=== PATIENT | male | born 1985 | race Caucasian/White ===

== ENCOUNTER 2023-08-09 07:25 | Outpatient (OUT) | payer OTHER, SELFPAY ==
[2023-08-09 08:12] LABS: Basophils Percent Auto 0.5 % (0.2-2.0); Eosinophils Absolute Auto 0.1 10^3/uL (0.0-0.7); Eosinophils Percent Auto 1.5 % (0.9-7.0); Hematocrit 43.1 % (42.0-54.0); Hemoglobin 14.5 g/dL (14.0-18.0); Immature Granulocytes Abs Auto 0.02 10^3/uL (0.00-0.03); Immature Granulocytes Pct Auto 0.3 % (0.0-0.5); Lymphocytes Absolute Auto 1.8 10^3/uL (1.2-3.8); Lymphocytes Percent Auto 27.9 % (20.5-60.0); Mean Corpuscular HGB Conc 33.6 g/dL (29.9-35.2); Mean Platelet Volume 9.9 fL (9.5-13.5); Monocytes Absolute Auto 0.4 10^3/uL (0.3-0.8); Monocytes Percent Auto 6.8 % (1.7-12.0); Neutrophils Absolute Auto 4.1 10^3/uL (1.4-6.5); Platelet Count 294 10^3/uL (150-450); Red Blood Count 4.84 10^6/uL (4.70-6.10); White Blood Count 6.5 10^3/uL (4.0-11.0)
[2023-08-09 09:25] LABS: Estimated Average Glucose 111 mg/dL; Glycohemoglobin A1C 5.5 % (4.5-6.2)
[2023-08-09 10:35] LABS: Alanine Aminotransferase 37 U/L (16-63); Albumin Level 3.7 g/dL (3.4-5.0); Alkaline Phosphatase 93 U/L (46-116); Anion Gap 11.3; Aspartate Amino Transferase 15 U/L (15-37); BUN Creatinine Ratio 13.6; Bilirubin Total 0.4 mg/dL (0.2-1.0); Calcium 9.2 mg/dL (8.5-10.1); Carbon Dioxide 24.6 mmol/L (21.0-32.0); Chloride 105 mmol/L (98-107); Chol HDL Ratio 4.9; Cholesterol 178 mg/dL (<=200); Estimated GFR (African America >60 (>=60); Estimated GFR (Non-African Ame >60 (>=60); Globulin 3.8 g/dL; Glucose 107 mg/dL (74-106); HDL Cholesterol 36 mg/dL (40-60); Potassium 3.9 mmol/L (3.5-5.1); Sodium 137 mmol/L (136-145); Thyroid Stimulating Hormone 2.046 uIU/mL (0.358-3.740); Total Protein 7.5 g/dL (6.4-8.2); Triglycerides 137 mg/dL (<=150); Uric Acid 6.7 mg/dL (3.5-7.2); VLDL CHOLESTEROL 27.4 mg/dL
[2023-08-09 10:42] LABS: Prostate Specific Antigen Scrn 0.59 ng/mL (<=4.00)
[2023-08-09 16:03] LABS: Occult Blood Negative
[2023-08-10 12:08] LABS: Insulin 26.4 uIU/mL (2.6-24.9)
== END 2023-08-09 07:26 | disposition home or self-care (01) ==
LOC: LAB 07:28
PROVIDERS: PCP Family Medicine; Visit Provider Family Medicine
DX: Z00.00 Encounter for general adult medical examination without abnormal findings (principal); R73.09 Other abnormal glucose; Z12.12 Encounter for screening for malignant neoplasm of rectum
CPT/HCPCS: 36415; 80053; 80061; 83036; 83525; 84436; 84443; 84481; 84550; 85025; G0103; G0328

== ENCOUNTER 2023-08-26 12:33 | Outpatient (OUT) | payer OTHER, SELFPAY ==
--- OUTSIDE RECORDS SUMMARY | 2023-08-26 12:40 | XMS_ITS | CCD ---
Author Name Unknown Address [address] [place] [address] Organization [facility] Care Team Providers Care Chart Computer Name Role Phone DR REKHA BARTH Admitting Unavailable DR REKHA BARTH Attending Unavailable DR REKHA ABRTH Primary Care Unavailable DR REKHA BARTH Consulting Unavailable Results Test Name Value Interpretation Reference Range Facil ity CBC AUTO DIFFon 04-24-2022 BASO # 0.0 103/ul Normal 0.0-0.1 [facility] Comment on above: Performed By: #### C BC #### [facility] [address] [place] [address] Dr. Emelyn Tilley Basophils/100 WBC (Bld) 0.4 % Normal 0.2-2.0 [facility] Comment on above: Performed By: #### C BC #### [facility] [address] [address] [address] Emelyn Tilley EO # 0.1 103/ul Normal 0.0-0.7 [facility] Comment on above: Performed By: #### C BC #### [facility] [address] [address] [address] Emelyn Tilley Eosinophils/100 WBC (Bld) 1.0 % Normal 0.9-7.0 [facility] Comment on above: Performed By: #### C BC #### [facility] [address] [address] [address] Emelyn Tilley Erythrocyte distribution width (RBC) [Ratio] 13.0 % Normal 11.0-15.0 [facility] Comment on above: Performed By: #### C BC #### [facility] [address] [place] [address] Dr. Emelyn Tilley Hematocrit (Bld) [Volume fraction] 42.7 % Normal 42.0-54.0 [facility] Comment on above: Performed By: #### C BC #### [facility] [address] [address] [address] Eemlyn Tilley Hemoglobin (Bld) [Mass/Vol] 14.4 g/dL Normal 14.0-18.0 [facility] Comment on above: Performed By: #### C BC #### [facility] [address] [place] [address] Dr. Emelyn Tilley IG # 0.03 10e3/ul Normal 0.00-0.03 [facility] Comment on above: Performed By: #### C BC #### [facility] [address] [place] [address] Dr. Emelyn Tilley IG % 0.4 % Normal 0.0-0.5 [facility] Comment on above: Performed By: #### C BC #### [facility] [address] [place] [address] Dr. Emelyn Tilley LYMPH # 1.6 103/ul Normal 1.2-3.8 [facility] Comment on above: Performed By: #### C BC #### [facility] [address] [place] [address] Dr. Emelyn Tilley Lymphocytes/100 WBC (Bld) 23.5 % Normal 20.5-60.0 [facility] Comment on above: Performed By: #### C BC #### [facility] [address] [place] [address] Dr. Emelyn Tilley MANUAL DIFF REQ NO Normal [facility] Comment on above: Performed By: #### C BC #### [facility] [address] [place] [address] Dr. Emelyn Tilley MCH (RBC) [Entitic mass] 29.9 pg Normal 25.9-34.0 [facility] Comment on above: Performed By: #### C BC #### [facility] [address] [place] [address] Dr. Emelyn Tilley MCHC (RBC) [Mass/Vol] 33.7 g/dL Normal 29.9-35.2 [facility] Comment on above: Performed By: #### C BC #### [facility] [address] [address] [address] Emelyn Tilley MCV (RBC) [Entitic vol] 88.8 fL Normal 80.0-94.0 [facility] Comment on above: Performed By: #### C BC #### [facility] [address] [address] [address] Emelyn Tilley MONO # 0.5 103/ul Normal 0.3-0.8 [facility] Comment on above: Performed By: #### C BC #### [facility] [address] [address] [address] Emelyn Tilley Monocytes/100 WBC (Bld) 7.4 % Normal 1.7-12.0 [facility] Comment on above: Performed By: #### C BC #### [facility] [address] [place] [address] Dr. Emelyn Tilley NEUT # 4.7 103/ul Normal 1.4-6.5 [facility] Comment on above: Performed By: #### C BC #### [facility] [address] [place] [address] Dr. Emelyn Tilley Neutrophils/100 WBC (Bld) 67.3 % Normal 43.0-75.0 [facility] Comment on above: Performed By: #### C BC #### [facility] [address] [place] [address] Dr. Emelyn Tilley Platelet mean volume (Bld) [Entitic vol] 9.8 fL Normal 9.5-13.5 [facility] Comment on above: Performed By: #### C BC #### [facility] [address] [place] [address] Dr. Emelyn Tilley PLT 275 103/ul Normal 150-450 [facility] Comment on above: Performed By: #### C BC #### [facility] [address] [address] [address] Emelyn Tilley RBC 4.81 106/ul Normal 4.70-6.10 [facility] Comment on above: Performed By: #### C BC #### [facility] [address] [address] [address] Emelyn Tilley WBC 7.0 103/ul Normal 4.0-11.0 [facility] Comment on above: Performed By: #### C BC #### [facility] [address] [place] [address] Dr. Emelyn Tilley GLYCOHEMOGLOBIN A1Con 2021 ADA RECOMMENDATION SEE BELOW Normal [facility] Comment on above: Result Comment: ADA RECOMMENDED LIMIT 4.0 - 6.0 ADA THERAPEUTIC TARGET < 7.0 ACTION SUGGESTED > 7.0 Performed By: #### A 1C #### [facility] [address] [place] [address] Dr. Emelyn Tilley Glucose [Mass/Vol] 103 mg/dL Normal [facility] Comment on above: Performed By: #### A 1C #### [facility] [address] [place] [address] Dr. Emelyn Tilley HbA1c (Bld) [Mass fraction] 5.2 % Normal 4.5-6.2 [facility] Comment on above: Performed By: #### A 1C #### [facility] [address] [place] [address] Dr. Emelyn Tilley LIPID PROFILEon 04-24-2022 CHOL-HDL RATIO NORM SEE BELOW Normal [facility] Comment on above: Result Comment: 3.3 - 4.4 LOW RISK 4.4 - 7.1 AVERAGE RISK 7.1 - 11.0 MODERATE RISK >11.0 HIGH RISK Performed By: #### L IPID, CMP #### [facility] [address] [place] [address] Dr. Emelyn Tilley Cholesterol [Mass/Vol] 173 mg/dL Normal <=200 [facility] Comment on above: Performed By: #### L IPID, CMP #### [facility] [address] [place] [address] Dr. Emelyn Tilley Cholesterol in HDL [Mass/Vol] 33 mg/dL Critically low 40-60 [facility] Comment on above: Performed By: #### L IPID, CMP #### [facility] [address] [place] [address] Dr. Emelyn Tilley Cholesterol in LDL [Mass/Vol] 104.4 mg/dL Normal [facility] Comment on above: Performed By: #### L IPID, CMP #### [facility] [address] [address] [address] Emelyn Tilley Cholesterol.total/Cho lesterol in HDL [Mass ratio] 5.2 {ratio} Normal [facility] Comment on above: Performed By: #### L IPID, CMP #### [facility] [address] [address] [address] Emelyn Tilley HDL NORMAL > or = 60 mg/dl - LOW CARDIOVASCULAR RISK <40 mg/dl - HIGH CARDIOVASCULAR RISK Normal [facility] Comment on above: Performed By: #### L IPID, CMP #### [facility] [address] [address] [address] Emelyn Tilley LDL CALC NORMAL SEE BELOW Normal [facility] Comment on above: Result Comment: <100 mg/dl OPTIMAL 100 - 129 mg/dl NEAR OR ABOVE OPTIMAL 130 - 159 mg/dl BORDERLINE HIGH 160 - 189 mg/dl HIGH >190 mg/dl VERY HIGH Performed By: #### L IPID, CMP #### [facility] [address] [address] [address] Emelyn Tilley Triglyceride [Mass/Vol] 178 mg/dL Critically high <=150 [facility] Comment on above: Performed By: #### L IPID, CMP #### [facility] [address] [address] [address] Emelyn Tilley VLDL CALC 35.6 mg/dL Normal [facility] Comment on above: Performed By: #### L IPID, CMP #### [facility] [address] [address] [address] Emelyn Tilley PROF 14(COMP METB)on 022 Albumin [Mass/Vol] 4.0 g/dL Normal 3.4-5.0 [facility] Comment on above: Performed By: #### L IPID, CMP #### [facility] [address] [address] [address] Emelyn Tilley Albumin/Globulin [Mass ratio] 1.2 {ratio} Normal [facility] Comment on above: Performed By: #### L IPID, CMP #### [facility] [address] [place] [address] Dr. Emelyn Tilley ALP [Catalytic activity/Vol] 91 U/L Normal 46-116 [facility] Comment on above: Performed By: #### L IPID, CMP #### [facility] [address] [place] [address] Dr. Emelyn Tilley ALT [Catalytic activity/Vol] 34 U/L Normal 16-63 [facility] Comment on above: Performed By: #### L IPID, CMP #### [facility] [address] [place] [address] Dr. Emelyn Tilley Anion gap [Moles/Vol] 8.8 mmol/L Normal [facility] Comment on above: Performed By: #### L IPID, CMP #### [facility] [address] [place] [address] Dr. Emelyn Tilley AST [Catalytic activity/Vol] 13 U/L Critically low 15-37 [facility] Comment on above: Performed By: #### L IPID, CMP #### [facility] [address] [place] [address] Dr. Emelyn Tilley Bilirubin [Mass/Vol] 0.5 mg/dL Normal 0.2-1.0 [facility] Comment on above: Performed By: #### L IPID, CMP #### [facility] [address] [place] [address] Dr. Emelyn Tilley Calcium [Mass/Vol] 9.1 mg/dL Normal 8.5-10.1 [facility] Comment on above: Performed By: #### L IPID, CMP #### [facility] [address] [place] [address] Dr. Emelyn Tilley Chloride [Moles/Vol] 106 mmol/L Normal 98-107 [facility] Comment on above: Performed By: #### L IPID, CMP #### [facility] [address] [place] [address] Dr. Emelyn Tilley CO2 [Moles/Vol] 28.2 mmol/L Normal 21.0-32.0 [facility] Comment on above: Performed By: #### L IPID, CMP #### [facility] [address] [place] [address] Dr. Emelyn Tilley Creatinine [Mass/Vol] 0.92 mg/dL Normal 0.70-1.30 [facility] Comment on above: Performed By: #### L IPID, CMP #### [facility] [address] [place] [address] Dr. Emelyn Tilley EGFR-AF IRAQI >60 Normal >=60 [facility] Comment on above: Performed By: #### L IPID, CMP #### [facility] [address] [place] [address] Dr. Emelyn Tilley EGFR-NON AF IRAQI >60 Normal >=60 [facility] Comment on above: Performed By: #### L IPID, CMP #### [facility] [address] [place] [address] Dr. Emelyn Tilley Globulin (S) [Mass/Vol] 3.3 g/dL Normal [facility] Comment on above: Performed By: #### L IPID, CMP #### [facility] [address] [place] [address] Dr. Emelyn Tilley Glucose [Mass/Vol] 110 mg/dL Critically high 74-106 T [facility] Comment on above: Performed By: #### L IPID, CMP #### [facility] [address] [place] [address] Dr. Emelyn Tilley Potassium [Moles/Vol] 4.0 mmol/L Normal 3.5-5.1 [facility] Comment on above: Performed By: #### L IPID, CMP #### [facility] [address] [place] [address] Dr. Emelyn Tilley Protein [Mass/Vol] 7.3 g/dL Normal 6.4-8.2 [facility] Comment on above: Performed By: #### L IPID, CMP #### [facility] [address] [place] [address] Dr. Emelyn Tilley Sodium [Moles/Vol] 139 mmol/L Normal 136-145 [facility] Comment on above: Performed By: #### L IPID, CMP #### [facility] [address] [address] [address] Emelyn Tilley Urea nitrogen [Mass/Vol] 17.0 mg/dL Normal 7.0-18.0 [facility] Comment on above: Performed By: #### L IPID, CMP #### [facility] [id number] Emelyn Tilley Urea nitrogen/Creatinine [Mass ratio] 18.5 mg/mg Normal [facility] Comment on above: Performed By: #### L IPID, CMP #### [facility] [address] [address] [address] Emelyn Tilley Encounters Encounter Date Encounter Type Care Provider Facility Start: 04-27-2022 Encounter for genera l adult medical examination without abnormal findings DR REKHA BARTH [facility] Start: 04-24-2022 End: 04-25-[address] REKHA BARTH Facility:[facility] Start: 04-24-2022 End: 04-25-2022 Encounter for general adult medical examination without abnormal findings DR REKHA BARTH Facility:[facility] Payers Date Payer Category Payer Unknown [id number] Unknown [id number] Summary Purpose Family History No Family History Records Found Advance Directives No Advanced Directives Records Found Additional Source Comments (unrecognized sect ion and content) No Status Records Found INFORMATION SOURCE (unrecogn ized section and content) DATE CREATED AUTHOR 04/27/2022 [facility] FOR RECORDS PERTAINING TO PATIENTS WHO ARE OR HAVE BEEN ENROLLED IN A CHEMICAL DEPENDENCY/SUBSTANCEABUSE PROGRAM, SOME INFORMATION MAY BE OMITTED. This clinical summary was aggregated from multiple sources. Caution should be exercised in using it in the provision of clinical care. This summary normalizes information from multiple sources, and as a consequence, information in this document may materially change the coding, format and clinical context of patient data. In addition, data may be omitted in some cases. CLINICAL DECISIONS SHOULD BE BASED ON THE PRIMARY CLINICAL RECORDS. [facility] provides no warranty or guarantee of the accuracy or completeness of information in this document.
[2023-08-26 13:01] LABS: Basophils Percent Auto 0.5 % (0.2-2.0); Eosinophils Absolute Auto 0.1 10^3/uL (0.0-0.7); Hemoglobin 14.1 g/dL (14.0-18.0); Immature Granulocytes Abs Auto 0.03 10^3/uL (0.00-0.03); Immature Granulocytes Pct Auto 0.4 % (0.0-0.5); Lymphocytes Absolute Auto 1.9 10^3/uL (1.2-3.8); Lymphocytes Percent Auto 24.8 % (20.5-60.0); Mean Corpuscular HGB Conc 33.6 g/dL (29.9-35.2); Mean Corpuscular Hemoglobin 29.9 pg (25.9-34.0); Mean Corpuscular Volume 89.2 fL (80.0-94.0); Mean Platelet Volume 9.8 fL (9.5-13.5); Monocytes Absolute Auto 0.5 10^3/uL (0.3-0.8); Monocytes Percent Auto 6.9 % (1.7-12.0); Neutrophils Absolute Auto 5.1 10^3/uL (1.4-6.5); Neutrophils Percent Auto 66.4 % (43.0-75.0); Platelet Count 281 10^3/uL (150-450); Red Blood Count 4.71 10^6/uL (4.70-6.10); Red Cell Distribution Width 12.7 % (11.0-15.0); White Blood Count 7.7 10^3/uL (4.0-11.0)
== END 2023-08-26 12:34 | disposition home or self-care (01) ==
LOC: LAB 12:34
PROVIDERS: PCP Family Medicine; Visit Provider Family Medicine
DX: R19.4 Change in bowel habit (principal)
CPT/HCPCS: 36415; 85025

== ENCOUNTER 2023-09-21 07:52 | Outpatient (OUT) | payer OTHER, SELFPAY ==
--- OUTSIDE RECORDS SUMMARY | 2023-09-21 07:55 | XMS_ITS | CCD ---
Author Name Unknown Address [address] [facility] [address] [place] [id number] Organization [facility] Care Team Providers Care Flexo Press Operator Name Role Phone DR REKHA BARTH Admitting Unavailable DR REKHA BARTH Attending Unavailable DR REKHA BARTH Primary Care Unavailable DR REKHA BARTH Consulting Unavailable Samuel DE SANTIAGO Attending Unavailable Rekha Barth Referring Unavailable Rekha Barth Primary Care Physician Medications Current Medications Medication Drug Class(es) Dates Sig (Normalized) Sig (Original) citalopram 20 mg oral tablet (1 source) Serotonin Reuptake Inhibitor Start: 08-31-2023 take 1 tablet by mouth once daily citalopram 20 mg Tab 20 mg = 1 tab(s), Oral, Daily, Refills(s) 0 Start Date: 08/31/23 Status: Ordered Completed/Discontinued Medications Medication Drug Class(es) Dates Sig (Normalized) Sig (Original) lansoprazole 30 mg delayed release oral capsule (1 source) Proton Pump Inhibitor Start: 08-31-2023 take 1 capsule by mouth once daily lisinopril 10 mg oral tablet (1 source) Angiotensin Converting Enzyme Inhibitor Start: 08-31-2023 take 1 tablet by mouth once daily Problems Problem Classification Problem Date Documented Da te Episodic/Chronic Esophageal disorders (2 sources) Gastroesophageal reflux disease without esophagitis; Translations: [Gastro-esophageal reflux disease without esophagitis] Onset: 4 Chronic Essential hypertension (1 source) Hypertensive disorder 08-31-2023 Chronic Gastrointestinal hemorrhage (2 sources) Hemorrhage of rectum and anus; Translations: [Hemorrhage of anus and rectum] Onset: 4 Episodic Mood disorders (1 source) Mood disorder 08-31-2023 Chronic Other gastrointestinal disorders (1 source) Swollen abdomen; Translations: [Abdominal distension (gaseous)] Onset: 4 Episodic Other gastrointestinal disorders (2 sources) Altered bowel function; Translations: [Change in bowel habit] Onset: 4 Episodic Other gastrointestinal disorders (1 source) Abdominal bloating 09-13-2023 Episodic Other gastrointestinal disorders (1 source) Heartburn 08-31-2023 Episodic Other nutritional; endocrine; and metabolic disorders (1 source) Obese class II; Translations: [Body mass index (BMI) 37.0-37.9, adult] Onset: 4 Chronic Other nutritional; endocrine; and metabolic disorders (1 source) Body mass index 30+ - obesity 09-13-2023 Chronic Other nutritional; endocrine; and metabolic disorders (1 source) Morbid obesity 08-31-2023 Chronic Residual codes; unclassified (1 source) Obstructive sleep apnea syndrome 08-31-2023 Chronic Results Test Name Value Interpretation Reference Range Facil ity Physician Referralon 024 Physician Referral [id number] #[id number] Normal [facility] CBC AUTO DIFFon 04-24-2022 BASO # 0.0 103/ul Normal 0.0-0.1 [facility] Comment on above: Performed By: #### C BC #### [facility] [address] [place] [address] Dr. Emelyn Tilley Basophils/100 WBC (Bld) 0.4 % Normal 0.2-2.0 [facility] Comment on above: Performed By: #### C BC #### [facility] [address] [place] [address] Dr. Emelyn Tilley EO # 0.1 103/ul Normal 0.0-0.7 [facility] Comment on above: Performed By: #### C BC #### [facility] [address] [place] [address] Dr. Emelyn Tilley Eosinophils/100 WBC (Bld) 1.0 % Normal 0.9-7.0 [facility] Comment on above: Performed By: #### C BC #### [facility] [address] [place] [address] Dr. Emelyn Tilley Erythrocyte distribution width (RBC) [Ratio] 13.0 % Normal 11.0-15.0 [facility] Comment on above: Performed By: #### C BC #### [facility] [address] [place] [address] Dr. Emelyn Tilley Hematocrit (Bld) [Volume fraction] 42.7 % Normal 42.0-54.0 [facility] Comment on above: Performed By: #### C BC #### [facility] [address] [place] [address] Dr. Emelyn Tilley Hemoglobin (Bld) [Mass/Vol] 14.4 g/dL Normal 14.0-18.0 [facility] Comment on above: Performed By: #### C BC #### [facility] [address] [place] [address] Dr. Emelyn Tilley IG # 0.03 10e3/ul Normal 0.00-0.03 [facility] Comment on above: Performed By: #### C BC #### [facility] [address] [place] [address] Dr. Emelyn Tilley IG % 0.4 % Normal 0.0-0.5 [facility] Comment on above: Performed By: #### C BC #### [facility] [address] [place] [address] Dr. Emelyn Tilley LYMPH # 1.6 103/ul Normal 1.2-3.8 [facility] Comment on above: Performed By: #### C BC #### [facility] [address] [place] [address] Dr. Emelyn Tilley Lymphocytes/100 WBC (Bld) 23.5 % Normal 20.5-60.0 [facility] Comment on above: Performed By: #### C BC #### [facility] [address] [place] [address] Dr. Emelyn Tilley MANUAL DIFF REQ NO Normal [facility] Comment on above: Performed By: #### C BC #### [facility] [address] [place] [address] Dr. Emelyn Tilley MCH (RBC) [Entitic mass] 29.9 pg Normal 25.9-34.0 [facility] Comment on above: Performed By: #### C BC #### [facility] [address] [address] [address] Emelyn Tilley MCHC (RBC) [Mass/Vol] 33.7 g/dL Normal 29.9-35.2 [facility] Comment on above: Performed By: #### C BC #### [facility] [address] [place] [address] Dr. Emelyn Tilley MCV (RBC) [Entitic vol] 88.8 fL Normal 80.0-94.0 [facility] Comment on above: Performed By: #### C BC #### [facility] [address] [place] [address] Dr. Emelyn Tilley MONO # 0.5 103/ul Normal 0.3-0.8 [facility] Comment on above: Performed By: #### C BC #### [facility] [address] [place] [address] Dr. Emelyn Tilley Monocytes/100 WBC (Bld) 7.4 % Normal 1.7-12.0 [facility] Comment on above: Performed By: #### C BC #### [facility] [address] [place] [address] Dr. Emelyn Tilley NEUT # 4.7 103/ul Normal 1.4-6.5 [facility] Comment on above: Performed By: #### C BC #### [facility] [address] [place] [address] Dr. Emelyn Tilley Neutrophils/100 WBC (Bld) 67.3 % Normal 43.0-75.[address] [facility] Comment on above: Performed By: #### C BC #### [facility] [address] [place] [address] Dr. Emelyn Tilley Platelet mean volume (Bld) [Entitic vol] 9.8 fL Normal 9.5-13.[address] [facility] Comment on above: Performed By: #### C BC #### [facility] [address] [place] [address] Dr. Emelyn Tilley PLT 275 103/ul Normal 150-[address] [facility] Comment on above: Performed By: #### C BC #### [facility] [address] [address] [address] Emelyn Tilley RBC 4.81 106/ul Normal 4.70-6.10 [facility] Comment on above: Performed By: #### C BC #### [facility] [address] [address] [address] Emelyn Tilley WBC 7.0 103/ul Normal 4.0-11.0 [facility] Comment on above: Performed By: #### C BC #### [facility] [address] [place] [address] Dr. Emelyn Tilley GLYCOHEMOGLOBIN A1Con 2021 ADA RECOMMENDATION SEE BELOW Normal [facility] Comment on above: Result Comment: ADA RECOMMENDED LIMIT 4.0 - 6.0 ADA THERAPEUTIC TARGET < 7.0 ACTION SUGGESTED > 7.0 Performed By: #### A 1C #### [facility] [address] [place] [address] Dr. Emelyn Tilley Glucose [Mass/Vol] 103 mg/dL Normal [facility] Comment on above: Performed By: #### A 1C #### [facility] [address] [place] [address] Dr. Emelyn Tilley HbA1c (Bld) [Mass fraction] 5.2 % Normal 4.5-6.2 [facility] Comment on above: Performed By: #### A 1C #### [facility] [address] [place] [address] Dr. Emelyn Tilley LIPID PROFILEon 04-24-2022 CHOL-HDL RATIO NORM SEE BELOW Normal [facility] Comment on above: Result Comment: 3.3 - 4.4 LOW RISK 4.4 - 7.1 AVERAGE RISK 7.1 - 11.0 MODERATE RISK >11.0 HIGH RISK Performed By: #### L ANDREW, CMP #### [facility] [address] [place] [address] Dr. Emelyn Tilley Cholesterol [Mass/Vol] 173 mg/dL Normal <=200 [facility] Comment on above: Performed By: #### L IPKENDAL, CMP #### [facility] [address] [place] [address] Dr. Emelyn Tilley Cholesterol in HDL [Mass/Vol] 33 mg/dL Critically low 40-60 [facility] Comment on above: Performed By: #### L IPID, CMP #### [facility] [address] [address] [address] Emelyn Tilley Cholesterol in LDL [Mass/Vol] 104.4 mg/dL Normal [facility] Comment on above: Performed By: #### L IPID, CMP #### [facility] [address] [address] [address] Emelyn Tilley Cholesterol.total/Cho lesterol in HDL [Mass ratio] 5.2 {ratio} Normal [facility] Comment on above: Performed By: #### L IPID, CMP #### [facility] [address] [address] [address] Emelyn Tilley HDL NORMAL > or = 60 mg/dl - LOW CARDIOVASCULAR RISK <40 mg/dl - HIGH CARDIOVASCULAR RISK Normal [facility] Comment on above: Performed By: #### L IPID, CMP #### [facility] [address] [address] [address] Emelyn Tilley LDL CALC NORMAL SEE BELOW Normal [facility] Comment on above: Result Comment: <100 mg/dl OPTIMAL 100 - 129 mg/dl NEAR OR ABOVE OPTIMAL 130 - 159 mg/dl BORDERLINE HIGH 160 - 189 mg/dl HIGH >190 mg/dl VERY HIGH Performed By: #### L IPID, CMP #### [facility] [address] [address] [address] Emelyn Tilley Triglyceride [Mass/Vol] 178 mg/dL Critically high <=150 [facility] Comment on above: Performed By: #### L IPID, CMP #### [facility] [address] [address] [address] Emelyn Tilley VLDL CALC 35.6 mg/dL Normal [facility] Comment on above: Performed By: #### L IPID, CMP #### [facility] [address] [place] [address] Dr. Emelyn Tilley PROF 14(COMP METB)on 022 Albumin [Mass/Vol] 4.0 g/dL Normal 3.4-5.0 [facility] Comment on above: Performed By: #### L IPID, CMP #### [facility] [address] [place] [address] Dr. Emelyn Tilley Albumin/Globulin [Mass ratio] 1.2 {ratio} Normal [facility] Comment on above: Performed By: #### L IPID, CMP #### [facility] [address] [address] [address] Emelyn Tilley ALP [Catalytic activity/Vol] 91 U/L Normal 46-116 [facility] Comment on above: Performed By: #### L IPID, CMP #### [facility] [address] [place] [address] Dr. Emelyn Tilley ALT [Catalytic activity/Vol] 34 U/L Normal 16-63 [facility] Comment on above: Performed By: #### L IPID, CMP #### [facility] [address] [place] [address] Dr. Emelyn Tilley Anion gap [Moles/Vol] 8.8 mmol/L Normal [facility] Comment on above: Performed By: #### L IPID, CMP #### [facility] [address] [place] [address] Dr. Emelyn Tilley AST [Catalytic activity/Vol] 13 U/L Critically low 15-37 [facility] Comment on above: Performed By: #### L IPID, CMP #### [facility] [address] [place] [address] Dr. Emelyn Tilley Bilirubin [Mass/Vol] 0.5 mg/dL Normal 0.2-1.0 [facility] Comment on above: Performed By: #### L IPID, CMP #### [facility] [address] [place] [address] Dr. Emelyn Tilley Calcium [Mass/Vol] 9.1 mg/dL Normal 8.5-10.1 [facility] Comment on above: Performed By: #### L IPID, CMP #### [facility] [address] [place] [address] Dr. Emelyn Tilley Chloride [Moles/Vol] 106 mmol/L Normal 98-107 [facility] Comment on above: Performed By: #### L IPID, CMP #### [facility] [address] [place] [address] Dr. Emelyn Tilley CO2 [Moles/Vol] 28.2 mmol/L Normal 21.0-32.0 [facility] Comment on above: Performed By: #### L IPID, CMP #### [facility] [address] [place] [address] Dr. Emelyn Tilley Creatinine [Mass/Vol] 0.92 mg/dL Normal 0.70-1.[address] [facility] Comment on above: Performed By: #### L IPID, CMP #### [facility] [address] [place] [address] Dr. Emelyn Tilley EGFR-AF CYMRO >60 Normal >=60 [facility] Comment on above: Performed By: #### L IPID, CMP #### [facility] [address] [place] [address] Dr. Emelyn Tilley EGFR-NON AF CYMRO >60 Normal >=60 [facility] Comment on above: Performed By: #### L IPID, CMP #### [facility] [address] [place] [address] Dr. Emelyn Tilley Globulin (S) [Mass/Vol] 3.3 g/dL Normal [facility] Comment on above: Performed By: #### L IPID, CMP #### [facility] [address] [place] [address] Dr. Emelyn Tilley Glucose [Mass/Vol] 110 mg/dL Critically high 74-106 [facility] Comment on above: Performed By: #### L IPID, CMP #### [facility] [address] [place] [address] Dr. Emelyn Tilley Potassium [Moles/Vol] 4.0 mmol/L Normal 3.5-5.1 [facility] Comment on above: Performed By: #### L IPID, CMP #### [facility] [address] [place] [address] Dr. Emelyn Tilley Protein [Mass/Vol] 7.3 g/dL Normal 6.4-8.2 [facility] Comment on above: Performed By: #### L IPID, CMP #### [facility] [address] [address] [address] Emelyn Tilley Sodium [Moles/Vol] 139 mmol/L Normal 136-145 [facility] Comment on above: Performed By: #### L IPID, CMP #### [facility] [address] [place] [address] Dr. Emelyn Tilley Urea nitrogen [Mass/Vol] 17.0 mg/dL Normal 7.0-18.0 [facility] Comment on above: Performed By: #### L IPID, CMP #### [facility] [address] [place] [address] Dr. Emelyn Tilley Urea nitrogen/Creatinine [Mass ratio] 18.5 mg/mg Normal [facility] Comment on above: Performed By: #### L IPID, CMP #### [facility] [address] [address] [address] Emelyn Tilley Vital Signs Date Time Vital Sign Value Performing Clinician [facility] 09-13-2023 08:04-0500 Blood Pressure Location Samuel DE SANTIAGO [facility] 09-13-2023 08:04-0500 Diastolic blood pressure 93 mm[Hg] Samuel DE SANTIAGO [facility] 09-13-2023 08:04-0500 Heart rate 73 /min Samuel DE SANTIAGO [facility] 09-13-2023 08:04-0500 Respiratory rate 16 /min Samuel DE SANTIAGO [facility] 09-13-2023 08:04-0500 Systolic blood pressure 142 mm[Hg] Samuel DE SANTIAGO [facility] Encounters Encounter Date Encounter Type Care Provider Facility Start: 09-13-2023 ambulatory Samuel DE SANTIAGO Facility :[facility] Start: 09-13-2023 End: 09-13-2023 Patient encounter procedure Samuel DE SANTIAGO [facility] Start: 08-29-2023 ambulatory Samuel DE SANTIAGO Facility:[facility] Start: 08-26-2023 ambulatory Samuel DE SANTIAGO Facility:[facility] Start: 04-27-2022 Encounter for genera l adult medical examination without abnormal findings DR REKHA BARTH [facility] Start: 04-24-2022 End: 04-25-[address] REKHA BARTH Facility: Start: 04-24-2022 End: 04-25-2022 Encounter for general adult medical examination without abnormal findings DR REKHA BARTH Facility:[facility] Procedures Date Procedure Procedure Detail Performing Clinician None (qualifier value) Lorenzo anne JONNATHAN Immunizations Immunization Date Immunization Notes Care Provider Fa cility NEGATED: Highlighted row has not occurred!09-13-2023 influenza virus vaccine, unspecified formulation Samuel DE SANTIAGO [facility] Payers Date Payer Category Payer Unknown [id number] 1985 Unknown [id number] 1985 Unknown [id number] 1985 Unknown [id number] Social History Date Type Detail Facility Start: 09-13-2023 Tobacco smoking status Never s moked tobacco (finding) [facility] Tobacco smoking status Never [facility] Sex Assigned At Male [facility] Functional Status Date Assessment Result Facility 09-13-2023 Functional Status N/A [facility] Evaluation + Plan note Note Date & Type Note Facility Evaluation + Plan note No data available for this section [facility] Discharge instructions Note Date & Type Note Facility Hospital Discharge instructions No data available for this section [facility] Progress note Note Date & Type Note Facility Progress note No data available for this section [facility] Summary Purpose Family History No Family History Records FoundNo Family History Records Found No data available for this section Advance Directives No Advanced Directives Records FoundNo Advanced Directives Records Found Additional Source Comments (unrecognized sect ion and content) No Status Records FoundNo Status Records Found INFORMATION SOURCE (unrecogn ized section and content) DATE CREATED AUTHOR 04/27/2022 [facility] DATE CREATED AUTHOR AUTHOR'S ORGANIZ ATION 08/29/2023 [facility] Patient Care team informatio n (unrecognized section and content) Personnel Name: Rekha Barth MD Address: Address: [address] [place] [address] FOR RECORDS PERTAINING TO PATIENTS WHO ARE [...] BE BASED ON THE PRIMARY CLINICAL RECORDS. [facility] [employer] [facility]. provides no warranty or guarantee of the accuracy or completeness of information in this document.
== END 2023-09-21 07:53 | disposition home or self-care (01) ==
LOC: PST 07:52
PROVIDERS: PCP Family Medicine; Visit Provider Surgery
DX: Z01.818 Encounter for other preprocedural examination (principal); K59.00 Constipation, unspecified; K62.5 Hemorrhage of anus and rectum; R19.4 Change in bowel habit; K21.9 Gastro-esophageal reflux disease without esophagitis; R14.0 Abdominal distension (gaseous)

== ENCOUNTER 2023-09-28 08:45 | Day surgery (SDC) | payer OTHER, SELFPAY ==
--- NOTE | 2023-09-28 | OP_ITS ---
OPERATION DATE: 09/28/2023 PREOPERATIVE DIAGNOSIS: Change in bowel habits, intermittent rectal bleeding, gastroesophageal reflux disease, bloating. POSTOPERATIVE DIAGNOSIS: Small hiatal hernia as well as normal colonoscopy to cecum. PROCEDURE: EGD and colonoscopy to cecum with random sigmoid and rectal colon biopsies. SURGEON: Samuel De Leon M.D. ANESTHESIA: Monitored anesthesia care. ESTIMATED BLOOD LOSS: Less than 1 mL. INDICATIONS AND CONSENT: Patient is a 38-year-old male with history of intermittent rectal bleeding, as well as alternating diarrhea and constipation and GERD, as well as abdominal bloating. Indications, risks, benefits, alternatives of proceeding with EGD and colonoscopy under anesthesia were explained extensively to the patient, including the risks of bleeding, aspiration, esophageal/gastric/duodenal or colonic perforation or anesthetic complications. All of his questions were answered. Informed consent was obtained. PROCEDURE: Patient brought to the operating room, placed in the left lateral decubitus position. Monitored anesthesia care was provided. Bite block was placed in the patient?s mouth. Scope was inserted into the oropharynx. Under direct visualization, it was advanced into the esophagus, past the cricopharyngeus muscle and down into the stomach. The stomach was insufflated with air. The pylorus was traversed down to the descending portion of the duodenum. There was no evidence of duodenitis or ulceration. There was no scarring within the pyloric channel. The scope was pulled back into the stomach and retroflexed. There was noted to be a small sliding type hiatal hernia. No gastric mucosal abnormalities. The GE junction was noted at approximately 40 cm. There was no distal esophagitis or Cullen?s changes. The remainder of the esophagus was unremarkable. The scope was then withdrawn. Patient was then positioned for colonoscopy. Rectal exam was performed, which showed no masses or blood. The scope was then inserted into the anal canal. Under direct visualization, it was advanced. It was advanced to the terminal ileum which was normal, without inflammatory changes, ulcerations or bleeding. Upon withdrawal of the scope, mucosal surfaces were carefully examined. There was noted to be a good prep. There were no mass lesions or polyps. No inflammatory changes or ulcerations. No significant diverticulosis. Random biopsies were obtained of the sigmoid and rectum with good hemostasis. The scope was retroflexed in the anal canal. There was no significant hemorrhoidal disease. There were noted to be some prominent rectal veins. The scope was then withdrawn. The patient tolerated procedure well, was sent to recovery room in good condition. Follow up colonoscopy will depend on the biopsies, but if these are negative, would be in 10 years. CC: Kendrick Islas M.D. MAURI
[2023-09-28 08:59] VITALS: BP 149/96; PULSE 86; RESP 16; TEMP 35.5; O2SAT 97; BMI 36.2
--- OUTSIDE RECORDS SUMMARY | 2023-09-28 09:04 | XMS_ITS | CCD ---
Author Name Unknown Address [address] [facility] [address] [place] [id number] Organization [facility] Care Team Providers Care Frame Changer Name Role Phone DR REKHA BARTH Admitting [...] ity Physician Referralon 024 Physician Referral [id number] #[id number] Normal [facility] CBC AUTO DIFFon 04-24-2022 BASO # 0.0 103/ul Normal 0.0-0.1 [facility] Comment on above: Performed By: #### C BC #### [facility] [address] [place] [address] Dr. Emelyn Tilley Basophils/100 WBC (Bld) 0.4 % Normal 0.2-2.0 [facility] Comment on above: Performed By: #### C BC #### [facility] [address] [place] [address] Dr. Emelyn Tilley EO # 0.1 103/ul Normal 0.0-0.7 [facility] Comment on above: Performed By: #### C BC #### [facility] [address] [place] [address] Dr. Emelyn Tilley Eosinophils/100 WBC (Bld) 1.0 % Normal 0.9-7.0 [facility] Comment on above: Performed By: #### C BC #### [facility] [address] [place] [address] Dr. Emelyn Tilley Erythrocyte distribution width (RBC) [Ratio] 13.0 % Normal 11.0-15.0 [facility] Comment on above: Performed By: #### C BC #### [facility] [address] [place] [address] Dr. Emelyn Tilley Hematocrit (Bld) [Volume fraction] 42.7 % Normal 42.0-54.0 [facility] Comment on above: Performed By: #### C BC #### [facility] [address] [place] [address] Dr. Emelyn Tilley Hemoglobin (Bld) [Mass/Vol] 14.4 g/dL Normal 14.0-18.0 [facility] Comment on above: Performed By: #### C BC #### [facility] [address] [place] [address] Dr. Emelyn Tilley IG # 0.03 10e3/ul Normal 0.00-0.03 [facility] Comment on above: Performed By: #### C BC #### [facility] [address] [place] [address] Dr. Emelyn Tilley IG % 0.4 % Normal 0.0-0.5 [facility] Comment on above: Performed By: #### C BC #### [facility] [address] [place] [address] Dr. Emelyn Tilley LYMPH # 1.6 103/ul Normal 1.2-3.8 [facility] Comment on above: Performed By: #### C BC #### [facility] [address] [place] [address] Dr. Emelyn Tilley Lymphocytes/100 WBC (Bld) 23.5 % Normal 20.5-60.0 [facility] Comment on above: Performed By: #### C BC #### [facility] [address] [place] [address] Dr. Emelyn Tilley MANUAL DIFF REQ NO Normal [facility] Comment on above: Performed By: #### C BC #### [facility] [address] [place] [address] Dr. Emelyn Tilley MCH (RBC) [Entitic mass] 29.9 pg Normal 25.9-34.0 [facility] Comment on above: Performed By: #### C BC #### [facility] [address] [address] [address] Emelyn Tilley MCHC (RBC) [Mass/Vol] 33.7 g/dL Normal 29.9-35.2 [facility] Comment on above: Performed By: #### C BC #### [facility] [address] [place] [address] Dr. Emelyn Tilley MCV (RBC) [Entitic vol] 88.8 fL Normal 80.0-94.0 [facility] Comment on above: Performed By: #### C BC #### [facility] [address] [place] [address] Dr. Emelyn Tilley MONO # 0.5 103/ul Normal 0.3-0.8 [facility] Comment on above: Performed By: #### C BC #### [facility] [address] [place] [address] Dr. Emelyn Tilley Monocytes/100 WBC (Bld) 7.4 % Normal 1.7-12.0 [facility] Comment on above: Performed By: #### C BC #### [facility] [address] [place] [address] Dr. Emelyn Tilley NEUT # 4.7 103/ul Normal 1.4-6.5 [facility] Comment on above: Performed By: #### C BC #### [facility] [address] [place] [address] Dr. Emelyn Tilley Neutrophils/100 WBC (Bld) 67.3 % Normal 43.0-75.0 [facility] Comment on above: Performed By: #### C BC #### [facility] [address] [place] [address] Dr. Emelyn Tilley Platelet mean volume (Bld) [Entitic vol] 9.8 fL Normal 9.5-13.5 [facility] Comment on above: Performed By: #### C BC #### [facility] [address] [place] [address] Dr. Emelyn Tilley PLT 275 103/ul Normal 150-450 [facility] Comment on above: Performed By: #### C BC #### [facility] [address] [address] [address] Emelyn Tilley RBC 4.81 106/ul Normal 4.70-6.10 [facility] Comment on above: Performed By: #### C BC #### [facility] [address] [address] [address] Emelyn Tilley WBC 7.0 103/ul Normal 4.0-11.0 [facility] Comment on above: Performed By: #### C BC #### [facility] [address] [place] [address] Dr. Emelyn Tilley GLYCOHEMOGLOBIN A1Con 2021 ADA RECOMMENDATION SEE BELOW Normal [facility] Comment on above: Result Comment: ADA RECOMMENDED LIMIT 4.0 - 6.0 ADA THERAPEUTIC TARGET < 7.0 ACTION SUGGESTED > 7.0 Performed By: #### A 1C #### [facility] [address] [place] [address] Dr. Emelyn Tilley Glucose [Mass/Vol] 103 mg/dL Normal [facility] Comment on above: Performed By: #### A 1C #### [facility] [address] [place] [address] Dr. Emelyn Tilley HbA1c (Bld) [Mass fraction] 5.2 % Normal 4.5-6.2 [facility] Comment on above: Performed By: #### A 1C #### [facility] [address] [place] [address] Dr. Emelyn Tilley LIPID PROFILEon 04-24-2022 CHOL-HDL RATIO NORM SEE BELOW Normal [facility] Comment on above: Result Comment: 3.3 - 4.4 LOW RISK 4.4 - 7.1 AVERAGE RISK 7.1 - 11.0 MODERATE RISK >11.0 HIGH RISK Performed By: #### L ANDREW, CMP #### [facility] [address] [place] [address] Dr. Emelyn Tilley Cholesterol [Mass/Vol] 173 mg/dL Normal <=200 [facility] Comment on above: Performed By: #### L IPKENDAL, CMP #### [facility] [address] [place] [address] Dr. Emelyn Tilley Cholesterol in HDL [Mass/Vol] 33 mg/dL Critically low 40-60 [facility] Comment on above: Performed By: #### L IPID, CMP #### [facility] [address] [address] [address] Emelyn Tilley Cholesterol in LDL [Mass/Vol] 104.4 mg/dL Normal [facility] Comment on above: Performed By: #### L IPID, CMP #### [facility] [address] [address] [address] Emelyn Tilley Cholesterol.total/Cho lesterol in HDL [Mass ratio] 5.2 {ratio} Normal [facility] Comment on above: Performed By: #### L IPID, CMP #### [facility] [address] [address] [address] Emelyn Tilley HDL NORMAL > or = 60 mg/dl - LOW CARDIOVASCULAR RISK <40 mg/dl - HIGH CARDIOVASCULAR RISK Normal [facility] Comment on above: Performed By: #### L IPID, CMP #### [facility] [address] [address] [address] Emelyn Tilley LDL CALC NORMAL SEE BELOW Normal [facility] Comment on above: Result Comment: <100 mg/dl OPTIMAL 100 - 129 mg/dl NEAR OR ABOVE OPTIMAL 130 - 159 mg/dl BORDERLINE HIGH 160 - 189 mg/dl HIGH >190 mg/dl VERY HIGH Performed By: #### L IPID, CMP #### [facility] [address] [address] [address] Emelyn Tilley Triglyceride [Mass/Vol] 178 mg/dL Critically high <=150 [facility] Comment on above: Performed By: #### L IPID, CMP #### [facility] [address] [address] [address] Emelyn Tilley VLDL CALC 35.6 mg/dL Normal [facility] Comment on above: Performed By: #### L IPID, CMP #### [facility] [address] [place] [address] Dr. Emelyn Tilley PROF 14(COMP METB)on 022 Albumin [Mass/Vol] 4.0 g/dL Normal 3.4-5.0 [facility] Comment on above: Performed By: #### L IPID, CMP #### [facility] [address] [place] [address] Dr. Emelyn Tilley Albumin/Globulin [Mass ratio] 1.2 {ratio} Normal [facility] Comment on above: Performed By: #### L IPID, CMP #### [facility] [address] [address] [address] Emelyn Tilley ALP [Catalytic activity/Vol] 91 U/L Normal 46-116 [facility] Comment on above: Performed By: #### L IPID, CMP #### [facility] [address] [place] [address] Dr. Emelyn Tilley ALT [Catalytic activity/Vol] 34 U/L Normal 16-63 [facility] Comment on above: Performed By: #### L IPID, CMP #### [facility] [address] [place] [address] Dr. Emelyn Tilley Anion gap [Moles/Vol] 8.8 mmol/L Normal [facility] Comment on above: Performed By: #### L IPID, CMP #### [facility] [address] [place] [address] Dr. Emelyn Tilley AST [Catalytic activity/Vol] 13 U/L Critically low 15-37 [facility] Comment on above: Performed By: #### L IPID, CMP #### [facility] [address] [place] [address] Dr. Emelyn Tilley Bilirubin [Mass/Vol] 0.5 mg/dL Normal 0.2-1.0 [facility] Comment on above: Performed By: #### L IPID, CMP #### [facility] [address] [place] [address] Dr. Emelyn Tilley Calcium [Mass/Vol] 9.1 mg/dL Normal 8.5-10.1 [facility] Comment on above: Performed By: #### L IPID, CMP #### [facility] [address] [place] [address] Dr. Emelyn Tilley Chloride [Moles/Vol] 106 mmol/L Normal 98-107 [facility] Comment on above: Performed By: #### L IPID, CMP #### [facility] [address] [place] [address] Dr. Emelyn Tilley CO2 [Moles/Vol] 28.2 mmol/L Normal 21.0-32.0 [facility] Comment on above: Performed By: #### L IPID, CMP #### [facility] [address] [place] [address] Dr. Emelyn Tilley Creatinine [Mass/Vol] 0.92 mg/dL Normal 0.70-1.30 [facility] Comment on above: Performed By: #### L IPID, CMP #### [facility] [address] [place] [address] Dr. Emelyn Tilley EGFR-AF LATVIAN >60 Normal >=60 [facility] Comment on above: Performed By: #### L IPID, CMP #### [facility] [address] [place] [address] Dr. Emelyn Tilley EGFR-NON AF LATVIAN >60 Normal >=60 [facility] Comment on above: Performed By: #### L IPID, CMP #### [facility] [address] [place] [address] Dr. Emelyn Tilley Globulin (S) [Mass/Vol] 3.3 g/dL Normal [facility] Comment on above: Performed By: #### L IPID, CMP #### [facility] [address] [place] [address] Dr. Emelyn Tilley Glucose [Mass/Vol] 110 mg/dL Critically high 74-106 [facility] Comment on above: Performed By: #### L IPID, CMP #### [facility] [address] [place] [address] Dr. Emelyn Tilley Potassium [Moles/Vol] 4.0 mmol/L Normal 3.5-5.1 [facility] Comment on above: Performed By: #### L IPID, CMP #### [facility] [address] [place] [address] Dr. Emelyn Tilley Protein [Mass/Vol] 7.3 g/dL Normal 6.4-8.2 [facility] Comment on above: Performed By: #### L IPID, CMP #### [facility] [address] [address] [address] Emelyn Tilley Sodium [Moles/Vol] 139 mmol/L Normal 136-145 [facility] Comment on above: Performed By: #### L IPID, CMP #### [facility] [address] [place] [address] Dr. Emelyn Tilley Urea nitrogen [Mass/Vol] 17.0 mg/dL Normal 7.0-18.0 [facility] Comment on above: Performed By: #### L IPID, CMP #### [facility] [address] [place] [address] Dr. Emelyn Tilley Urea nitrogen/Creatinine [Mass ratio] 18.5 mg/mg Normal [facility] Comment on above: Performed By: #### L IPID, CMP #### [facility] [address] [address] [address] Emelyn Tilley Vital Signs Date Time Vital Sign Value Performing Clinician [facility] 09-13-2023 08:04-0500 Blood Pressure Location Samuel DE SANTIAGO [facility] 09-13-2023 08:04-0500 Diastolic blood pressure 93 mm[Hg] Samuel DE SANTIAGO [facility] 09-13-2023 08:04-0500 Heart rate 73 /min Samuel DE SANTIAGO [facility] 09-13-2023 08:04-0500 Respiratory rate 16 /min Samuel DE SANTIAGO [facility] 09-13-2023 08:04-0500 Systolic blood pressure 142 mm[Hg] Samuel DE SANTIAGO [facility] Encounters Encounter Date Encounter Type Care Provider Facility Start: 09-13-2023 ambulatory Samuel DE SANTIAGO Facility :[facility] Start: 09-13-2023 End: 09-13-2023 Patient encounter procedure Samuel DE SANTIAGO [facility] Start: 08-29-2023 ambulatory Samuel DE SANTIAGO Facility:[facility] Start: 08-26-2023 ambulatory Samuel DE SANTIAGO Facility:[facility] Start: 04-27-2022 Encounter for genera l adult medical examination without abnormal findings DR REKHA BARTH [facility] Start: 04-24-2022 End: 04-25-[address] REKHA BARTH Facility: Start: 04-24-2022 End: 04-25-2022 Encounter for general adult medical examination without abnormal findings DR REKHA BARTH Facility:[facility] Procedures Date Procedure Procedure Detail Performing Clinician None (qualifier value) Lorenzo anne JONNATHAN Immunizations Immunization Date Immunization Notes Care Provider Fa cility NEGATED: Highlighted row has not occurred!09-13-2023 influenza virus vaccine, unspecified formulation Samuel DE SANTIAGO [facility] Payers Date Payer Category Payer Unknown [id number] 1985 Unknown [id number] 1985 Unknown [id number] 1985 Unknown [id number] Social History Date Type Detail Facility Start: 09-13-2023 Tobacco smoking status Never s moked tobacco (finding) [facility] Tobacco smoking status Never [facility] Sex Assigned At Male [facility] Functional Status Date Assessment Result Facility 09-13-2023 Functional Status N/A [facility] Evaluation + Plan note Note Date & Type Note Facility Evaluation + Plan note No data available for this section [facility] Discharge instructions Note Date & Type Note Facility Hospital Discharge instructions No data available for this section [facility] Progress note Note Date & Type Note Facility Progress note No data available for this section [facility] Summary Purpose Family History No Family History Records FoundNo Family History Records Found No data available for this section Advance Directives No Advanced Directives Records FoundNo Advanced Directives Records Found Additional Source Comments (unrecognized sect ion and content) No Status Records FoundNo Status Records Found INFORMATION SOURCE (unrecogn ized section and content) DATE CREATED AUTHOR 04/27/2022 [facility] DATE CREATED AUTHOR AUTHOR'S ORGANIZ ATION 08/29/2023 [facility] Patient Care team informatio n (unrecognized section and content) Personnel Name: Rekha Barth MD Address: Address: [address] [place] [address] FOR RECORDS PERTAINING TO PATIENTS WHO ARE [...] BE BASED ON THE PRIMARY CLINICAL RECORDS. [facility]. provides no warranty or guarantee of the accuracy or completeness of information in this document.
[2023-09-28] MEDS: LACTATED RINGER'S SOLUTION 1,000 ML 50 ML IV (09:10)
[2023-09-28 11:31] VITALS: BP 101/68; PULSE 86; RESP 16; TEMP 36.1; O2SAT 94
[2023-09-28 11:46] VITALS: BP 107/75; PULSE 75; RESP 16; O2SAT 95
[2023-09-28 12:10] VITALS: BP 139/97; PULSE 68; RESP 16; O2SAT 96
== END 2023-09-28 12:22 | disposition home or self-care (01) ==
PROVIDERS: PCP Family Medicine; Visit Provider Surgery
PROC: (CPT 813; principal; 2023-09-28 09:45)
DX: K59.00 Constipation, unspecified (principal); K62.5 Hemorrhage of anus and rectum; R19.4 Change in bowel habit; K21.9 Gastro-esophageal reflux disease without esophagitis; R14.0 Abdominal distension (gaseous); K44.9 Diaphragmatic hernia without obstruction or gangrene; I10 Essential (primary) hypertension; E66.01 Morbid (severe) obesity due to excess calories; Z68.37 Body mass index [BMI] 37.0-37.9, adult; G47.33 Obstructive sleep apnea (adult) (pediatric); F39 Unspecified mood [affective] disorder
CPT/HCPCS: 43235; 45380; 88305; 99999; J2704

== ENCOUNTER 2024-09-08 07:40 | Outpatient (OUT) | payer OTHER, SELFPAY ==
--- OUTSIDE RECORDS SUMMARY | 2024-09-08 07:46 | XMS_ITS | CCD ---
Author Organization [facility] Care Team Providers Care [employer] Name Role Phone DR REKHA ISLAS Admitting Unavailable DR REKHA ISLAS Attending Unavailable DR REKHA ISLAS Primary Care Unavailable DR REKHA ISLAS Consulting Unavailable Rekha Islas Primary Care Physician Rekha Islas Referring Unavailable Samuel DE SANTIAGO Attending Unavailable NILSamuel Boyd Attending Unavailable NILSamuel Boyd Attending Unavailable Allergies Allergy Classification Reported Allergen(s) Allergy Type Date of Onset Reaction(s) Facility (1 source) No Known Medication Allergies; Translations: [No Known Medication Allergies] Propensity to adverse reactions (disorder) [facility] Repository Medications Current Medications Medication Drug Class(es) Dates Sig (Normalized) Sig (Original) citalopram 20 mg oral tablet (2 sources) Serotonin Reuptake Inhibitor Start: 08-31-2023 take 1 tablet by mouth once daily citalopram 20 mg Tab 20 mg = 1 tab(s), Oral, Daily, Refills(s) 0 Start Date: 08/31/23 Status: Ordered Completed/Discontinued Medications Medication Drug Class(es) Dates Sig (Normalized) Sig (Original) lansoprazole 30 mg delayed release oral capsule (2 sources) Proton Pump Inhibitor Start: 08-31-2023 take 1 capsule by mouth once daily lisinopril 10 mg oral tablet (2 sources) Angiotensin Converting Enzyme Inhibitor Start: 08-31-2023 take 1 tablet by mouth once daily Problems Problem Classification Problem Date Documented Da te Episodic/Chronic Esophageal disorders (3 sources) Gastroesophageal reflux disease without esophagitis; Translations: [Gastro-esophageal reflux disease without esophagitis] Onset: 4 Chronic Essential hypertension (2 sources) Hypertensive disorder 08-31-2023 Chronic Gastrointestinal hemorrhage (3 sources) Hemorrhage of rectum and anus; Translations: [Hemorrhage of anus and rectum] Onset: 4 Episodic Mood disorders (2 sources) Mood disorder 08-31-2023 Chronic Other gastrointestinal disorders (1 source) Swollen abdomen; Translations: [Abdominal distension (gaseous)] Onset: 4 Episodic Other gastrointestinal disorders (3 sources) Altered bowel function; Translations: [Change in bowel habit] Onset: 4 Episodic Other gastrointestinal disorders (2 sources) Abdominal bloating 09-13-2023 Episodic Other gastrointestinal disorders (2 sources) Heartburn 08-31-2023 Episodic Other nutritional; endocrine; and metabolic disorders (1 source) Obese class II; Translations: [Body mass index (BMI) 37.0-37.9, adult] Onset: 4 Chronic Other nutritional; endocrine; and metabolic disorders (2 sources) Body mass index 30+ - obesity 09-13-2023 Chronic Other nutritional; endocrine; and metabolic disorders (2 sources) Morbid obesity 08-31-2023 Chronic Residual codes; unclassified (2 sources) Obstructive sleep apnea syndrome 08-31-2023 Chronic Results Test Name Value Interpretation Reference Range Facility General Surgery Office/Clini c Noteon 10-27-2023 General Surgery Office/Clinic Note Chief Complaint post operative follow up HPI Staff 20 day post operative follow up post EGD and colonoscopy with sigmoid and rectal biopsies. Continues to experience significant bloating. Reports constipation and rectal bleeding are intermittent. History of Present Illness s/p EGd and colonoscopy with random colon/rectal biopsies, done for bowel changes, rectal bleeding, bloating; evidence of small hiatal hernia, no gastritis; normal colon, biopsies negative for inflammation. Review of Systems ROS - Provider Constitutional: no fever, no sweats, no weight loss. Eyes: no glasses, no blurred vision, no visual loss. ENMT: no dentures, no hoarseness, no swallowing difficulties, no hearing loss, no ear infection(s), no nose bleeds. Cardiovascular: normal blood pressure, no chest pain, regular heartbeat, no heart murmur. Respiratory: no shortness of breath, no cough, no asthma, no wheezing. Gastrointestinal: no nausea, no vomiting, no diarrhea, no constipation, no blood in stool, no change in bowel habits, no abdominal pain, no hepatitis. Genitourinary: no kidney stones, no urine infection, no dysuria. Musculoskeletal: no pain, no weakness. Skin: no changing moles, no rash, no skin lumps. Neurologic: no seizures, no epilepsy, no headache. Psychiatric: no emotional or psychiatric problem. Heme/Lymph: no bleeding problems, no anemia, no blood clots, no transfusions. Allergy/Immunologic: no swollen lymph nodes/glands, no IV drug abuse. Other: Additional ROS info: Except as noted in the above Review of Systems and in the History of Present Illness, all other systems have been reviewed and are negative or noncontributory. Assessment/Plan 1. Chronic GERD (K21.9: Gastro-esophageal reflux disease without esophagitis) improved with PPI, small hiatal hernia; recommend frequent small meals, no carbonation;call with problems/questions 2. Abdominal bloating (R14.0: Abdominal distension (gaseous)) likely component of IBS, recommend high fiber diet and daily fiber supplement. 3. Rectal bleeding (K62.5: Hemorrhage of anus and rectum) likely irritation of rectal veins; see #2; call with problems/questions. Follow-up No qualifying data available Problem List/Past Medical History Ongoing Abdominal bloating BMI 37.0-37.9, adult Change in bowel habits Chronic GERD Heartburn HTN (hypertension) Mood disorder Morbid obesity PHOEBE (obstructive sleep apnea) Rectal bleeding Historical No qualifying data Procedure/Surgical History Colonoscopy (09/28/2023), EGD - esophagogastroduodenoscopy (09/28/2023). Medications citalopram 20 mg Tab, 20 mg= 1 tab(s), Oral, Daily lansoprazole 30 mg Cap-DR, 30 mg= 1 cap(s), Oral, Daily lisinopril 10 mg Tab, 10 mg= 1 tab(s), Oral, Daily Allergies No Known Allergies No Known Medication Allergies Social History Alcohol - Denies Alcohol Use, 09/13/2023 Substance Abuse - Denies Substance Abuse, 09/13/2023 Tobacco Never (less than 100 in lifetime) Tobacco Use:. Never Smokeless Tobacco Use:., 09/13/2023 Family History Family history is negative Immunizations Vaccine Date Status Comments influenza virus vaccine, inactivated - Not Given Patient Refuses Normal [facility] Comment on above: Result Comment: Elec tronically Signed By: JONNATHAN HELTON, Samuel Ortega\Date and Time Signed: 10/27/23 10:19 EDT Ambulatory Visit Summaryon 0 10-18-2023 Ambulatory Visit Summary ROWAN HELMS :1985 Visit Date:10/18/2023 Ambulatory Visit Instructions Your Care Team Attending Physician - JONNATHAN HELTON, Samuel Avalos Primary Care Physician - Rekha Islas MD This Is Your Medications List Contact prescribing physician if questions or concerns citalopram (citalopram 20 mg Tab) lansoprazole (lansoprazole 30 mg Cap-DR) lisinopril (lisinopril 10 mg Tab) Procedures Performed Colonoscopy (09/28/2023), EGD - esophagogastroduodenoscopy (09/28/2023). Medications What How Much When Instructions Unchanged citalopram (citalopram 20 mg Tab) 1 Tablets By Mouth Every day Contact prescribing physician if questions or concerns Unchanged lansoprazole (lansoprazole 30 mg Cap-DR) 1 Capsules By Mouth Every day 1 Unknown, 0 Refill(s) Contact prescribing physician if questions or concerns Unchanged lisinopril (lisinopril 10 mg Tab) 1 Tablets By Mouth Every day 1 Unknown, 0 Refill(s) Contact prescribing physician if questions or concerns Allergies No Known Allergies No Known Medication Allergies Problems Ongoing - Any problem that you are currently receiving treatment for. Abdominal bloating BMI 37.0-37.9, adult Change in bowel habits Chronic GERD Heartburn HTN (hypertension) Mood disorder Morbid obesity PHOEBE (obstructive sleep apnea) Rectal bleeding Patient Survey You may receive a survey via text or e-mail asking about your office visit. Please share your experience with us by completing your survey. We appreciate your feedback and thank you for choosing us for your care. Normal [facility] Reminderson 10-18-2023 Reminders - From: Paula Hunter LPN To: GSN - Clinical; Sent: 10/18/2023 16:03:32 EDT Show up: 08/30/2033 07:00:00 EST Subject: colonoscopy recall Due Date/Time: 09/27/2033 07:00:00 EDT Reminder/Recall Patient due for screening colonoscopy 09/27/2033. Normal [facility] Pathology Noteon 10-03-2023 Pathology Note [id number]#1.00TIFF [facility] Outside Colonoscopyon 2023 Outside Colonoscopy [id number]#1.00TIFF [facility] Consent for Procedure/Surger yon 09-14-2023 Consent for Procedure/Surgery [id number]#1.00TIFF [facility] Ambulatory Visit Summaryon 0 09-13-2023 Ambulatory Visit Summary ROWAN HELMS :1985 Visit Date:09/13/2023 Ambulatory Visit Instructions Your Diagnosis Change in bowel habits Rectal bleeding Chronic GERD Abdominal bloating BMI 37.0-37.9, adult Your Care Team Attending Physician - JONNATHAN HELTON, Samuel Avalos Primary Care Physician - Rekha Islas MD Referring Physician - Rekha Islas MD This Is Your Medications List Contact prescribing physician if questions or concerns citalopram (citalopram 20 mg Tab) lansoprazole (lansoprazole 30 mg Cap-DR) lisinopril (lisinopril 10 mg Tab) Procedures Performed None. Discharge Vitals Heart Rate (Peripheral) 73 Respiratory Rate 16 Blood Pressure 142/93 Height 182.88 cm Height 72 in Weight 124.3 kg Weight 273.46 lb BMI 37.17 Medications What How Much When Instructions Unchanged citalopram (citalopram 20 mg Tab) 1 Tablets By Mouth Every day Contact prescribing physician if questions or concerns Unchanged lansoprazole (lansoprazole 30 mg Cap-DR) 1 Capsules By Mouth Every day 1 Unknown, 0 Refill(s) Contact prescribing physician if questions or concerns Unchanged lisinopril (lisinopril 10 mg Tab) 1 Tablets By Mouth Every day 1 Unknown, 0 Refill(s) Contact prescribing physician if questions or concerns Medications and Immunizations Administered Not Given influenza virus vaccine, inactivated, Patient Refuses Allergies No Known Allergies No Known Medication Allergies Problems Ongoing - Any problem that you are currently receiving treatment for. Abdominal bloating BMI 37.0-37.9, adult Change in bowel habits Chronic GERD Heartburn HTN (hypertension) Mood disorder Morbid obesity PHOEBE (obstructive sleep apnea) Rectal bleeding Patient Survey You may receive a survey via text or e-mail asking about your office visit. Please share your experience with us by completing your survey. We appreciate your feedback and thank you for choosing us for your care. Normal [facility] Insurance Correspondenceon 0 09-13-2023 Insurance Correspondence [id number]#1.00TIFF Normal [facility] Physician Referralon 024 Physician Referral [id number]#1.00TIFF Normal [facility] CBC AUTO DIFFon 04-24-2022 BASO # 0.0 103/ul Normal 0.0-0.1 [facility] Comment on above: Performed By: #### C BC #### [facility] [address] [place] [address] Dr. Emelyn Tilley Basophils/100 WBC (Bld) 0.4 % Normal 0.2-2.0 [facility] Comment on above: Performed By: #### C BC #### [facility] [address] [place] [address] Dr. Emelyn Tilley EO # 0.1 103/ul Normal 0.0-0.7 [facility] Comment on above: Performed By: #### C BC #### [facility] [address] [place] [address] Dr. Emelyn Tilley Eosinophils/100 WBC (Bld) 1.0 % Normal 0.9-7.0 [facility] Comment on above: Performed By: #### C BC #### [facility] [address] [place] [address] Dr. Emelyn Tilley Erythrocyte distribution width (RBC) [Ratio] 13.0 % Normal 11.0-15.0 [facility] Comment on above: Performed By: #### C BC #### [facility] [address] [place] [address] Dr. Emelyn Tilley Hematocrit (Bld) [Volume fraction] 42.7 % Normal 42.0-54.0 [facility] Comment on above: Performed By: #### C BC #### [facility] [address] [place] [address] Dr. Emelyn Tilley Hemoglobin (Bld) [Mass/Vol] 14.4 g/dL Normal 14.0-18.0 [facility] Comment on above: Performed By: #### C BC #### [facility] [address] [place] [address] Dr. Emelyn Tilley IG # 0.03 10e3/ul Normal 0.00-0.03 [facility] Comment on above: Performed By: #### C BC #### [facility] [address] [place] [address] Dr. Emelyn Tilley IG % 0.4 % Normal 0.0-0.5 [facility] Comment on above: Performed By: #### C BC #### [facility] [address] [place] [address] Dr. Emelyn Tilley LYMPH # 1.6 103/ul Normal 1.2-3.8 [facility] Comment on above: Performed By: #### C BC #### [facility] [address] [place] [address] Dr. Emelyn Tilley Lymphocytes/100 WBC (Bld) 23.5 % Normal 20.5-60.0 [facility] Comment on above: Performed By: #### C BC #### [facility] [address] [place] [address] Dr. Emelyn Tilley MANUAL DIFF REQ NO Normal [facility] Comment on above: Performed By: #### C BC #### [facility] [address] [place] [address] Dr. Emelyn Tilley MCH (RBC) [Entitic mass] 29.9 pg Normal 25.9-34.0 [facility] Comment on above: Performed By: #### C BC #### [facility] [address] [place] [address] Dr. Emelyn Tilley MCHC (RBC) [Mass/Vol] 33.7 g/dL Normal 29.9-35.2 [facility] Comment on above: Performed By: #### C BC #### [facility] [address] [place] [address] Dr. Emelyn Tilley MCV (RBC) [Entitic vol] 88.8 fL Normal 80.0-94.0 [facility] Comment on above: Performed By: #### C BC #### [facility] [address] [place] [address] Dr. Emelyn Tilley MONO # 0.5 103/ul Normal 0.3-0.8 [facility] Comment on above: Performed By: #### C BC #### [facility] [address] [place] [address] Dr. Emelyn Tilley Monocytes/100 WBC (Bld) 7.4 % Normal 1.7-12.0 [facility] Comment on above: Performed By: #### C BC #### [facility] [address] [place] [address] Dr. Emelyn Tilley NEUT # 4.7 103/ul Normal 1.4-6.5 [facility] Comment on above: Performed By: #### C BC #### [facility] [address] [place] [address] Dr. Emelyn Tilley Neutrophils/100 WBC (Bld) 67.3 % Normal 43.0-75.0 [facility] Comment on above: Performed By: #### C BC #### [facility] [address] [place] [address] Dr. Emelyn Tilley Platelet mean volume (Bld) [Entitic vol] 9.8 fL Normal 9.5-13.5 [facility] Comment on above: Performed By: #### C BC #### [facility] [address] [place] [address] Dr. Emelyn Tilley PLT 275 103/ul Normal 150-450 [facility] Comment on above: Performed By: #### C BC #### [facility] [address] [place] [address] Dr. Emelyn Tilley RBC 4.81 106/ul Normal 4.70-6.10 [facility] Comment on above: Performed By: #### C BC #### [facility] [address] [place] [address] Dr. Emelyn Tilley WBC 7.0 103/ul Normal 4.0-11.0 [facility] Comment on above: Performed By: #### C BC #### [facility] [address] [place] [address] Dr. Emelyn iTlley GLYCOHEMOGLOBIN A1Con 2021 ADA RECOMMENDATION SEE BELOW Normal [facility] Comment on above: Result Comment: ADA RECOMMENDED LIMIT 4.0 - 6.0 ADA THERAPEUTIC TARGET < 7.0 ACTION SUGGESTED > 7.0 Performed By: #### A 1C #### [facility] [address] [place] [address] Dr. Emelyn Tilley Glucose [Mass/Vol] 103 mg/dL Normal [facility] Comment on above: Performed By: #### A 1C #### [facility] [address] [place] [address] Dr. Emelyn Tilley HbA1c (Bld) [Mass fraction] 5.2 % Normal 4.5-6.2 [facility] Comment on above: Performed By: #### A 1C #### [facility] [address] [place] [address] Dr. Emelyn Tilley LIPID PROFILEon 04-24-2022 CHOL-HDL RATIO NORM SEE BELOW Normal [facility] Comment on above: Result Comment: 3.3 - 4.4 LOW RISK 4.4 - 7.1 AVERAGE RISK 7.1 - 11.0 MODERATE RISK >11.0 HIGH RISK Performed By: #### L IPID, CMP #### [facility] [address] [place] [address] Dr. Emelyn Tilley Cholesterol [Mass/Vol] 173 mg/dL Normal <=200 [facility] Comment on above: Performed By: #### L IPID, CMP #### [facility] [address] [place] [address] Dr. Emelyn Tilley Cholesterol in HDL [Mass/Vol] 33 mg/dL Critically low 40-60 [facility] Comment on above: Performed By: #### L IPID, CMP #### [facility] [address] [place] [address] Dr. Emelyn Tilley Cholesterol in LDL [Mass/Vol] 104.4 mg/dL Normal [facility] Comment on above: Performed By: #### L IPID, CMP #### [facility] [address] [address] [address] Emelyn Tilley Cholesterol.total/C holesterol in HDL [Mass ratio] 5.2 {ratio} Normal [facility] Comment on above: Performed By: #### L IPID, CMP #### [facility] [address] [address] [address] Emelyn Tilley HDL NORMAL > or = 60 mg/dl - LO W CARDIOVASCULAR RISK <40 mg/dl - HIGH CARDIOVASCULAR RISK Normal [facility] Comment on above: Performed By: #### L IPID, CMP #### [facility] [address] [address] [address] Emelyn Tilley LDL CALC NORMAL SEE BELOW Normal [facility] Comment on above: Result Comment: <100 mg/dl OPTIMAL 100 - 129 mg/dl NEAR OR ABOVE OPTIMAL 130 - 159 mg/dl BORDERLINE HIGH 160 - 189 mg/dl HIGH >190 mg/dl VERY HIGH Performed By: #### L IPID, CMP #### [facility] [address] [address] [address] Emelyn Tilley Triglyceride [Mass/Vol] 178 mg/dL Critically high <=150 [facility] Comment on above: Performed By: #### L IPID, CMP #### [facility] [address] [address] [address] Emelyn Tilley VLDL CALC 35.6 mg/dL Normal [facility] Comment on above: Performed By: #### L IPID, CMP #### [facility] [address] [address] [address] Emelyn Tilley PROF 14(COMP METB)on 022 Albumin [Mass/Vol] 4.0 g/dL Normal 3.4-5.0 [facility] Comment on above: Performed By: #### L IPID, CMP #### [facility] [address] [address] [address] Emelyn Tilley Albumin/Globulin [Mass ratio] 1.2 {ratio} Normal [facility] Comment on above: Performed By: #### L IPID, CMP #### [facility] [address] [address] [address] Emelyn Tilley ALP [Catalytic activity/Vol] 91 U/L Normal 46-116 [facility] Comment on above: Performed By: #### L IPID, CMP #### [facility] [address] [address] [address] Emelyn Tilley ALT [Catalytic activity/Vol] 34 U/L Normal 16-63 [facility] Comment on above: Performed By: #### L IPID, CMP #### [facility] [address] [address] [address] Emelyn Tilley Anion gap [Moles/Vol] 8.8 mmol/L Normal [facility] Comment on above: Performed By: #### L IPID, CMP #### [facility] [address] [address] [address] Emelyn Tilley AST [Catalytic activity/Vol] 13 U/L Critically low 15-37 [facility] Comment on above: Performed By: #### L IPID, CMP #### [facility] [address] [address] [address] Emelyn Tilley Bilirubin [Mass/Vol] 0.5 mg/dL Normal 0.2-1.0 [facility] Comment on above: Performed By: #### L IPID, CMP #### [facility] [address] [address] [address] Emelyn Tilley Calcium [Mass/Vol] 9.1 mg/dL Normal 8.5-10.1 [facility] Comment on above: Performed By: #### L IPID, CMP #### [facility] [address] [address] [address] Emelyn Tilley Chloride [Moles/Vol] 106 mmol/L Normal 98-107 [facility] Comment on above: Performed By: #### L IPID, CMP #### [facility] [address] [address] [address] Emelyn Tilley CO2 [Moles/Vol] 28.2 mmol/L Normal 21.0-32.0 [facility] Comment on above: Performed By: #### L IPID, CMP #### [facility] [address] [address] [address] Emelyn Tilley Creatinine [Mass/Vol] 0.92 mg/dL Normal 0.70-1.30 [facility] Comment on above: Performed By: #### L IPID, CMP #### [facility] [address] [address] [address] Emelyn Tilley EGFR-AF CITIZEN OF [place] >60 Normal >=60 [facility] Comment on above: Performed By: #### L IPID, CMP #### [facility] [address] [address] [address] Emelyn Tilley EGFR-NON AF CITIZEN OF [place] >60 Normal >=60 [facility] Comment on above: Performed By: #### L IPID, CMP #### [facility] [address] [address] [address] Emelyn Tilley Globulin (S) [Mass/Vol] 3.3 g/dL Normal [facility] Comment on above: Performed By: #### L IPID, CMP #### [facility] [address] [address] [address] Emelyn Tilley Glucose [Mass/Vol] 110 mg/dL Critically high 74-106 [facility] Comment on above: Performed By: #### L IPID, CMP #### [facility] [address] [address] [address] Emelyn Tilley Potassium [Moles/Vol] 4.0 mmol/L Normal 3.5-5.1 [facility] Comment on above: Performed By: #### L IPID, CMP #### [facility] [address] [address] [address] Emelyn Tilley Protein [Mass/Vol] 7.3 g/dL Normal 6.4-8.2 [facility] Comment on above: Performed By: #### L IPID, CMP #### [facility] [address] [address] [address] Emelyn Tilley Sodium [Moles/Vol] 139 mmol/L Normal 136-145 [facility] Comment on above: Performed By: #### L IPID, CMP #### [facility] [address] [address] [address] Emelyn Tilley Urea nitrogen [Mass/Vol] 17.0 mg/dL Normal 7.0-18.0 [facility] Comment on above: Performed By: #### L IPID, CMP #### [facility] [address] [place], [place] [address] Dr. Emelyn Tilley Urea nitrogen/Creatinine [Mass ratio] 18.5 mg/mg Normal [facility] Comment on above: Performed By: #### L IPID, CMP #### [facility] [address] [address] [address] Emelyn Tilley Vital Signs Date Time Vital Sign Value Performing Clinician Pao nash 09-13-2023 08:04-0500 Blood Pressure Location Samuel NILL [facility] 09-13-2023 08:04-0500 Diastolic blood pressure 93 mm[Hg] Samuel NILL [facility] 09-13-2023 08:04-0500 Heart rate 73 /min Samuel NILL [facility] 09-13-2023 08:04-0500 Respiratory rate 16 /min Samuel NILL [facility] 09-13-2023 08:04-0500 Systolic blood pressure 142 mm[Hg] Samuel NILL [facility] Encounters Encounter Date Encounter Type Care Provider Facility Start: 10-18-2023 End: 10-19-2023 ambulatory Samuel R CURTL Facility:[facility] Start: 10-18-2023 End: 10-18-2023 Patient encounter procedure Samuel R NILL [facility] Start: 09-28-2023 End: 09-29-2023 ambulatory Samuel R NILL Facility:[facility] Start: 09-13-2023 End: 09-14-2023 ambulatory Rekha Islas Facility:[facility] Start: 09-13-2023 End: 09-13-2023 Patient encounter procedure Samuel DE SANTIAGO [facility] Start: 08-29-2023 ambulatory Rekha Cliftony Facility:[facility] Start: 08-26-2023 ambulatory Rekha Hokathie Facility:[facility] [place] Start: 04-27-2022 Encounter for genera l adult medical examination without abnormal findings DR REKHA ISLAS [facility] Start: 04-24-2022 End: 04-25-[address] REKHA ISLAS Facility: Start: 04-24-2022 End: 04-25-2022 Encounter for general adult medical examination without abnormal findings DR REKHA ISLAS Facility:[facility] Procedures Date Procedure Procedure Detail Performing Clinician Start: 09-28-2023 Esophagogastroduodenoscopy Samuel DE SANTIAGO Start: 09-28-2023 Colonoscopy Samuel NICOLAS None (qualifier value) Lorenzo DE SANTIAGO Immunizations Immunization Date Immunization Notes Care Provider Fa patricia NEGATED: Highlighted row has not occurred!09-13-2023 influenza virus vaccine, unspecified formulation Samuel DE SANTIAGO [facility] Payers Date Payer Category Payer Unknown [id number] 1985 Unknown [id number] [id number] 1985 Unknown [id number] [id number] 1985 Unknown [id number] 2.16.8 [id number] 1985 Unknown [id number] 2.16.8 [id number] 1985 Unknown [id number] 2.16.8 [id number] Social History Date Type Detail Facility Start: 09-13-2023 Tobacco smoking status Never s moked tobacco (finding) [facility] Tobacco smoking status Never Mje [facility] Sex Assigned At Male [facility] Functional Status Date Assessment Result Facility 09-13-2023 Functional Status N/A [facility] Clinical Note 09-13-2023 Note Date & Type Note Facility 09-13-2023 Note Chief Complaint consultation for constipation, rectal bleeding and heartburn HPI Staff 38 year old male presents on consultation from Dr. Islas for constipation, rectal bleeding and heartburn. Reports one year history of intermittent alternating constipation and loose stools. Has tried Miralax for constipation but does not take this consistently. Reports he notes bright red blood with straining for bowel movements. At this time, he experiences rectal pain as well. Denies abdominal pain, nausea or vomiting. States he is not experiencing heartburn but does report post prandial bloating. No unexplained weight loss. Never had colonoscopy in the past. No known family history of colon cancer. History of Present Illness 38 yo male with h/o htn, GERD, PHOEBE, mood disorder, referred for change in bowel habits and intermittent rectal bleeding; patient reports 6 month h/o intermittent abd bloating, some GERD, regurgitation with bending over, no N/V; alternating loose stools and constipation, with some decreased caliber of stools; rectal bleeding with straining; no pain; no wt loss; no abd operations or endoscopy; no improvement with PPI; takes Miralax occasionally; no asa or NSAID use; no tobacco use; no fmhx of GI malignancy or IBD. Review of Systems PHQ Score Initial Depression Screen Score: 0 SCORE ROS - Provider Constitutional: no fever, no sweats, no weight loss. Eyes: no glasses, no blurred vision, no visual loss. ENMT: no dentures, no hoarseness, no swallowing difficulties, no hearing loss, no ear infection(s), no nose bleeds. Cardiovascular: normal blood pressure, no chest pain, regular heartbeat, no heart murmur. Respiratory: no shortness of breath, no cough, no asthma, no wheezing. Gastrointestinal: no nausea, no vomiting, no diarrhea, no constipation, no blood in stool, no change in bowel habits, no abdominal pain, no hepatitis. Genitourinary: no kidney stones, no urine infection, no dysuria. Musculoskeletal: no pain, no weakness. Skin: no changing moles, no rash, no skin lumps. Neurologic: no seizures, no epilepsy, no headache. Psychiatric: no emotional or psychiatric problem. Heme/Lymph: no bleeding problems, no anemia, no blood clots, no transfusions. Allergy/Immunologic: no swollen lymph nodes/glands, no IV drug abuse. Other: Additional ROS info: Except as noted in the above Review of Systems and in the History of Present Illness, all other systems have been reviewed and are negative or noncontributory. Physical Exam Vitals & Measurements HR: 73(Peripheral) RR: 16 BP: 142/93 HT: 72 in HT: 182.88 cm WT: 124.3 kg WT: 273.46 lb BMI: 37.17 HEENT: normal conjunctiva, sclera clear, no scleral icterus, EOM intact, PERRLA, oral mucosa moist without lesions. Neck: trachea midline, no mass, symmetric, no thyromegaly or nodules, no adenopathy Respiratory: lungs CTA, respirations non labored. Cardiovascular: regular rate and rhythm, no murmur, no pedal edema or varicosities. Gastrointestinal: obese, soft, non distended, no tenderness, no masses, no palpable hernias, diastasis recti no, no hepatosplenomegaly; normal bs Lymphatic: no cervical adenopathy, no supraclavicular adenopathy. Musculoskeletal: normal gait, digits and nails without infection, nodes, cyanosis, clubbing. Skin: no rashes, no lesions, no ulcers, no subcutaneous nodules, induration. Psychiatric/Neuro: oriented to time, place, person, judgement normal, affect appropriate for age, insight intact, no focal deficits. Tests: , review of old records completed , Discussed surgical options, risks, and possible complications with patient. Assessment/Plan 1. Change in bowel habits (R19.4: Change in bowel habit) plan EGD and colonoscopy under anesthesia, informed consent obtained. 2. Rectal bleeding (K62.5: Hemorrhage of anus and rectum) see # 1 3. Chronic GERD (K21.9: Gastro-esophageal reflux disease without esophagitis) see # 1 4. Abdominal bloating (R14.0: Abdominal distension (gaseous)) see # 1 5. BMI 37.0-37.9, adult (Z68.37: Body mass index [BMI] 37.0-37.9, adult) recommend diet and exercise Follow-up No qualifying data available Problem List/Past Medical History Ongoing Abdominal bloating BMI 37.0-37.9, adult Change in bowel habits Chronic GERD Heartburn HTN (hypertension) Mood disorder Morbid obesity PHOEBE (obstructive sleep apnea) Rectal bleeding Historical No qualifying data Procedure/Surgical History None. Medications citalopram 20 mg Tab, 20 mg= 1 tab(s), Oral, Daily lansoprazole 30 mg Cap-DR, 30 mg= 1 cap(s), Oral, Daily lisinopril 10 mg Tab, 10 mg= 1 tab(s), Oral, Daily Allergies No Known Allergies No Known Medication Allergies Social History Alcohol - Denies Alcohol Use, 09/13/2023 Substance Abuse - Denies Substance Abuse, 09/13/2023 Tobacco Never (less than 100 in lifetime) Tobacco Use:. Never Smokeless Tobacco Use:., 09/13/2023 Family History Family history is negative Immunizations (more content not included)... [facility] Comment on above: Result Comment: Elec tronically Signed By: JONNATHAN HELTON, Samuel Ortega\Date and Time Signed: 09/13/23 08:42 EST Evaluation + Plan note Note Date & Type Note Facility Evaluation + Plan note No data available for this section [facility] Discharge instructions Note Date & Type Note Facility Hospital Discharge instructions No data available for this section [facility] Progress note Note Date & Type Note Facility Progress note No data available for this section [facility] Summary Purpose Family History No Family History Records Found No data available for this section No data available for this section No Family History Records Found Advance Directives No Advanced Directives Records FoundNo Advanced Directives Records Found Additional Source Comments (unrecognized sect ion and content) No Status Records FoundNo Status Records Found INFORMATION SOURCE (unrecogn ized section and content) DATE CREATED AUTHOR 04/27/2022 [facility] DATE CREATED AUTHOR AUTHOR'S SUNDAR NICK 10/28/2023 [facility] Patient Care team informatio n (unrecognized section and content) Personnel Name: Rekha Islas MD Address: Address: [address] [place] [address] Personnel Name: Rekha Islas MD Address: Address: [address] [place] [address] FOR RECORDS PERTAINING TO PATIENTS WHO ARE [...] THE PRIMARY CLINICAL RECORDS. [facility] [employer] provides no warranty or guarantee of the accuracy or completeness of information in this document.
[2024-09-08 08:27] LABS: Basophils Percent Auto 0.5 % (0.2-2.0); Eosinophils Absolute Auto 0.1 10^3/uL (0.0-0.7); Eosinophils Percent Auto 1.2 % (0.9-7.0); Hematocrit 45.5 % (42.0-54.0); Hemoglobin 15.6 g/dL (14.0-18.0); Immature Granulocytes Abs Auto 0.03 10^3/uL (0.00-0.03); Immature Granulocytes Pct Auto 0.4 % (0.0-0.5); Lymphocytes Absolute Auto 1.9 10^3/uL (1.2-3.8); Lymphocytes Percent Auto 22.8 % (20.5-60.0); Mean Corpuscular HGB Conc 34.3 g/dL (29.9-35.2); Mean Corpuscular Hemoglobin 30.8 pg (25.9-34.0); Mean Corpuscular Volume 89.7 fL (80.0-94.0); Mean Platelet Volume 11.2 fL (9.5-13.5); Monocytes Absolute Auto 0.5 10^3/uL (0.3-0.8); Monocytes Percent Auto 5.4 % (1.7-12.0); Neutrophils Absolute Auto 5.8 10^3/uL (1.4-6.5); Neutrophils Percent Auto 69.7 % (43.0-75.0); Platelet Count 143 10^3/uL (150-450); Red Blood Count 5.07 10^6/uL (4.70-6.10); Red Cell Distribution Width 13.1 % (11.0-15.0); White Blood Count 8.3 10^3/uL (4.0-11.0)
[2024-09-08 09:48] LABS: Alanine Aminotransferase 24 U/L (16-63); Albumin Globulin Ratio 1.1; Albumin Level 3.9 g/dL (3.4-5.0); Alkaline Phosphatase 94 U/L (46-116); Anion Gap 12.6; Aspartate Amino Transferase 23 U/L (15-37); BUN Creatinine Ratio 16.3; Bilirubin Total 0.9 mg/dL (0.2-1.0); Calcium 9.2 mg/dL (8.5-10.1); Carbon Dioxide 24.7 mmol/L (21.0-32.0); Chloride 103 mmol/L (98-107); Chol HDL Ratio 5.1; Cholesterol 200 mg/dL (<=200); Estimated GFR (African America >60 (>=60 mL/min/1.73m^2); Estimated GFR (Non-African Ame >60 (>=60 mL/min/1.73m^2); Free T3 2.66 pg/mL (2.18-3.98); Globulin 3.6 g/dL; Glucose 98 mg/dL (74-106); HDL Cholesterol 39 mg/dL (40-60); Potassium 4.3 mmol/L (3.5-5.1); Sodium 136 mmol/L (136-145); Total Protein 7.5 g/dL (6.4-8.2); Triglycerides 145 mg/dL (<=150)
[2024-09-08 16:29] LABS: Estimated Average Glucose 105 mg/dL; Glycohemoglobin A1C 5.3 % (4.5-6.2)
== END 2024-09-08 07:41 | disposition home or self-care (01) ==
PROVIDERS: PCP Family Medicine; Visit Provider Family Medicine
DX: E78.5 Hyperlipidemia, unspecified (principal); D64.9 Anemia, unspecified; R73.09 Other abnormal glucose; R53.83 Other fatigue; Z79.899 Other long term (current) drug therapy; Z12.5 Encounter for screening for malignant neoplasm of prostate
CPT/HCPCS: 36415; 80053; 80061; 83036; 84436; 84443; 84481; 85025; G0103

== ENCOUNTER 2025-04-23 11:15 | Outpatient (OUT) | payer OTHER, SELFPAY ==
--- NOTE | 2025-04-23 11:21 | XR_ITS ---
The [address] [address] Patient Name: ROWAN HELMS MRN: [id number] date: 1985 Sex: M Assigned Patient Location: [facility] Current Patient Location: [facility] Accession/Order Number: [id number] Exam Date: 04/23/2025 11:31 Report Date: 04/23/2025 11:55 At the request of: REKHA BARTH MD Procedure: XR chest 2V PA AND LATERAL CHEST: CLINICAL HISTORY: Cough and chest congestion for the past week COMPARISON: None There is mild basilar atelectasis and/or scarring. There is no focal parenchymal consolidation, effusion or pneumothorax. The cardiac, hilar and mediastinal silhouettes are within normal limits. There is no vascular congestion. The visualized bony thorax is intact. XR/XR chest 2V IMPRESSION: BASILAR ATELECTASIS AND/OR SCARRING. NO OTHER ACUTE FINDINGS. Impression dictated by: Ness Monsalve M.D. 04/23/2025 11:55 AM Dictation Location: [place] [address] Electronically authenticated by: [id number] Date: 04/23/2025 11:55
--- OUTSIDE RECORDS SUMMARY | 2025-04-23 11:31 | XMS_ITS | CCD ---
Author Organization [facility] Care Team Providers Care Larder Cook Name Role Phone DR REKHA BARTH Admitting DR REKHA Guzman Attending Unavailable DR REKHA BARTH Primary Care Unavailable DR REKHA BARTH Consulting Unavailable Rekha Barth Primary Care Physician Samuel DE SANTIAGO Attending Unavailable NILSamuel Boyd Attending Unavailable Samuel DE SANTIAGO Attending Unavailable NILOliver, Samuel Avalos Attending Unavailable Allergies Allergy Classification Reported Allergen(s) Allergy Type Date of Onset Reaction(s) Facility (1 source) No Known Medication Allergies; Translations: [No Known Medication Allergies] Propensity to adverse reactions (disorder) [facility] Repository Medications Current Medications Medication Drug Class(es) Dates Sig (Normalized) Sig (Original) citalopram 20 mg oral tablet (3 sources) Serotonin Reuptake Inhibitor Start: 08-31-2023 take 1 tablet by mouth once daily citalopram 20 mg Tab 20 mg = 1 tab(s), Oral, Daily, Refills(s) 0 Start Date: 08/31/23 Status: Ordered irbesartan 150 mg oral tablet (1 source) Angiotensin 2 Receptor Tierra Start: 09-12-2024 take 1 tablet by mouth once daily irbesartan 150 mg Tab 150 mg = 1 tab(s), Oral, Daily, Refills(s) 0 Start Date: 09/12/24 Status: Ordered Completed/Discontinued Medications Medication Drug Class(es) Dates Sig (Normalized) Sig (Original) lansoprazole 30 mg delayed release oral capsule (2 sources) Proton Pump Inhibitor Start: 08-31-2023 take 1 capsule by mouth once daily lisinopril 10 mg oral tablet (2 sources) Angiotensin Converting Enzyme Inhibitor Start: 08-31-2023 take 1 tablet by mouth once daily Problems Problem Classification Problem Date Documented Da te Episodic/Chronic Abdominal hernia (1 source) Hiatal hernia 09-12-2024 Episodic Esophageal disorders (4 sources) Gastroesophageal reflux disease without esophagitis; Translations: [Gastro-esophageal reflux disease without esophagitis] Onset: 4 Chronic Essential hypertension (3 sources) Hypertensive disorder 08-31-2023 Chronic Gastrointestinal hemorrhage (4 sources) Hemorrhage of rectum and anus; Translations: [Hemorrhage of anus and rectum] Onset: 4 Episodic Mood disorders (3 sources) Mood disorder 08-31-2023 Chronic Other and unspecified benign neoplasm (1 source) Lipoma of skin and subcutaneous tissue of trunk; Translations: [Benign lipomatous neoplasm of skin and subcutaneous tissue of trunk] Onset: 5 Episodic Other and unspecified benign neoplasm (1 source) Lipoma of lateral chest wall 09-19-2024 Episodic Other gastrointestinal disorders (1 source) Swollen abdomen; Translations: [Abdominal distension (gaseous)] Onset: 4 Episodic Other gastrointestinal disorders (4 sources) Altered bowel function; Translations: [Change in bowel habit] Onset: 4 Episodic Other gastrointestinal disorders (3 sources) Abdominal bloating 09-13-2023 Episodic Other gastrointestinal disorders (3 sources) Heartburn 08-31-2023 Episodic Other nutritional; endocrine; and metabolic disorders (1 source) Obese class II; Translations: [Body mass index (BMI) 37.0-37.9, adult] Onset: 4 Chronic Other nutritional; endocrine; and metabolic disorders (3 sources) Body mass index 30+ - obesity 09-13-2023 Chronic Other nutritional; endocrine; and metabolic disorders (3 sources) Morbid obesity 08-31-2023 Chronic Other skin disorders (1 source) Granulomatous disorder of the skin and subcutaneous tissue; Translations: [Granulomatous disorder of the skin and subcutaneous tissue, unspecified] Onset: 5 Episodic Other skin disorders (1 source) Skin lesion 09-19-2024 Episodic Residual codes; unclassified (3 sources) Obstructive sleep apnea syndrome 08-31-2023 Chronic Results Test Name Value Interpretation Reference Range Facility Ambulatory Visit Summaryon 0 09-19-2024 Ambulatory Visit Summary Ambulatory Visit Summary ROWAN HELMS :1985 Visit Date:09/19/2024 Ambulatory Visit Instructions Your Care Team Attending Physician - Samuel DE SANTIAGO MD Primary Care Physician - Rekha Barth MD This Is Your Medications List Contact prescribing physician if questions or concerns citalopram (citalopram 20 mg Tab) irbesartan (irbesartan 150 mg Tab) Procedures Performed Colonoscopy (09/28/2023), EGD - esophagogastroduodenoscopy (09/28/2023). Discharge Vitals Heart Rate (Peripheral) 72 Respiratory Rate 16 Blood Pressure 138/86 Height 182.9 cm Height 72 in Weight 121.3 kg Weight 267.42 lb BMI 36.26 Medications What How Much When Instructions Unchanged citalopram (citalopram 20 mg Tab) 1 Tablets By Mouth Every day Contact prescribing physician if questions or concerns Unchanged irbesartan (irbesartan 150 mg Tab) 1 Tablets By Mouth Every day Contact prescribing physician if questions or concerns Allergies No Known Allergies No Known Medication Allergies Problems Ongoing - Any problem that you are currently receiving treatment for. BMI 36.0-36.9,adult Chronic GERD Hiatal hernia HTN (hypertension) Mood disorder Morbid obesity PHOEBE (obstructive sleep apnea) Historical - Any problem that you are no longer receiving treatment for. Abdominal bloating Change in bowel habits Heartburn Rectal bleeding Patient Survey You may receive a survey via text or e-mail asking about your office visit. Please share your experience with us by completing your survey. We appreciate your feedback and thank you for choosing us for your care. Jordyn [facility] General Surgery Office/Clini c Noteon 10-27-2023 General [...] vaccine, inactivated - Not Given Patient Refuses [facility] Comment on above: Result Comment: Elec tronically Signed By: JONNATHAN HELTON, Samuel Avalos\.br\Date and Time Signed: 10/27/23 10:19 EDT Ambulatory Visit Summaryon 0 10-18-2023 Ambulatory Visit Summary ROWAN HELMS :1985 Visit Date:10/18/2023 Ambulatory Visit Instructions Your Care Team Attending Physician - JONNATHAN HELTON, Samuel Avalos Primary Care Physician - Rekha Barth MD This Is Your Medications List Contact [...] you for choosing us for your care. [facility] Reminderson 10-18-2023 Reminders - From: Paula Hunter LPN To: N - Clinical; Sent: 10/18/2023 16:03:32 EDT Show up: 08/30/2033 07:00:00 EST Subject: colonoscopy recall Due Date/Time: 09/27/2033 07:00:00 EDT Reminder/Recall Patient due for screening colonoscopy 09/27/2033. Normal [facility] Pathology Noteon 10-03-2023 Pathology Note [id number] Normal [facility] Outside Colonoscopyon 2023 Outside Colonoscopy [id number] Normal [facility] CBC AUTO DIFFon 04-24-2022 BASO # 0.0 103/ul Normal 0.0-0.1 [facility] Comment on above: Performed By: #### C BC #### [facility] [address] [place] [address] Dr. Emelyn Tilley Basophils/100 WBC (Bld) 0.4 % Normal 0.2-2.0 [facility] Comment on above: Performed By: #### C BC #### [facility] [address] [address] [address] Emelyn Tilley EO # 0.1 103/ul Normal 0.0-0.7 [facility] Comment on above: Performed By: #### C BC #### [facility] [address] [place] [address] Dr. Emelyn Tilley Eosinophils/100 WBC (Bld) 1.0 % Normal 0.9-7.0 [facility] Comment on above: Performed By: #### C BC #### [facility] [address] [place] [address] Dr. Emelyn Tilley Erythrocyte distribution width (RBC) [Ratio] 13.0 % Normal 11.0-15.0 [facility] Comment on above: Performed By: #### C BC #### [facility] [address] [place] [address] Dr. Emelyn Tilley Hematocrit (Bld) [Volume fraction] 42.7 % Normal 42.0-54.0 [facility] Comment on above: Performed By: #### C BC #### [facility] [address] [place] [address] Dr. Emelyn Tilley Hemoglobin (Bld) [Mass/Vol] 14.4 g/dL Normal 14.0-18.0 [facility] Comment on above: Performed By: #### C BC #### [facility] [address] [place] [address] Dr. Emelyn Tilley IG # 0.03 10e3/ul Normal 0.00-0.03 [facility] Comment on above: Performed By: #### C BC #### [facility] [address] [place] [address] Dr. Emelyn Tilley IG % 0.4 % Normal 0.0-0.5 [facility] Comment on above: Performed By: #### C BC #### [facility] [address] [place] [address] Dr. Emelyn Tilley LYMPH # 1.6 103/ul Normal 1.2-3.8 [facility] Comment on above: Performed By: #### C BC #### [facility] [address] [place] [address] Dr. Emelyn Tilley Lymphocytes/100 WBC (Bld) 23.5 % Normal 20.5-60.0 [facility] Comment on above: Performed By: #### C BC #### [facility] [address] [place] [address] Dr. Emelyn Tilley MANUAL DIFF REQ NO Normal [facility] Comment on above: Performed By: #### C BC #### [facility] [address] [place] [address] Dr. Emelyn Tilley MCH (RBC) [Entitic mass] 29.9 pg Normal 25.9-34.0 [facility] Comment on above: Performed By: #### C BC #### [facility] [address] [place] [address] Dr. Emelyn Tilley MCHC (RBC) [Mass/Vol] 33.7 g/dL Normal 29.9-35.2 [facility] Comment on above: Performed By: #### C BC #### [facility] [address] [address] [address] Emelyn Tilley MCV (RBC) [Entitic vol] 88.8 fL Normal 80.0-94.0 [facility] Comment on above: Performed By: #### C BC #### [facility] [address] [address] [address] Emelyn Tilley MONO # 0.5 103/ul Normal 0.3-0.8 [facility] Comment on above: Performed By: #### C BC #### [facility] [address] [address] [address] Emelyn Tilley Monocytes/100 WBC (Bld) 7.4 % Normal 1.7-12.0 [facility] Comment on above: Performed By: #### C BC #### [facility] [address] [place] [address] Dr. Emelyn Tilley NEUT # 4.7 103/ul Normal 1.4-6.5 [facility] Comment on above: Performed By: #### C BC #### [facility] [address] [place] [address] Dr. Emelyn Tilley Neutrophils/100 WBC (Bld) 67.3 % Normal 43.0-75.0 [facility] Comment on above: Performed By: #### C BC #### [facility] [address] [place] [address] Dr. Emelyn Tilley Platelet mean volume (Bld) [Entitic vol] 9.8 fL Normal 9.5-13.5 [facility] Comment on above: Performed By: #### C BC #### [facility] [address] [place] [address] Dr. Eemlyn Tilley PLT 275 103/ul Normal 150-450 [facility] Comment on above: Performed By: #### C BC #### [facility] [address] [place] [address] Dr. Emelyn Tilley RBC 4.81 106/ul Normal 4.70-6.10 [facility] Comment on above: Performed By: #### C BC #### [facility] [address] [place] [address] Dr. Emelyn Tilley WBC 7.0 103/ul Normal 4.0-11.0 [facility] Comment on above: Performed By: #### C BC #### [facility] [address] [address] [address] Emelyn Tilley GLYCOHEMOGLOBIN A1Con 2021 ADA RECOMMENDATION SEE BELOW Normal [facility] Comment on above: Result Comment: ADA RECOMMENDED LIMIT 4.0 - 6.0 ADA THERAPEUTIC TARGET < 7.0 ACTION SUGGESTED > 7.0 Performed By: #### A 1C #### [facility] [address] [address] [address] Emelyn Tilley Glucose [Mass/Vol] 103 mg/dL Normal [facility] Comment on above: Performed By: #### A 1C #### [facility] [address] [place] [address] Dr. Emelyn Tilley HbA1c (Bld) [Mass fraction] 5.2 % Normal 4.5-6.2 [facility] Comment on above: Performed By: #### A 1C #### [facility] [address] [place] [address] Dr. Emelyn Tilley LIPID PROFILEon 04-24-2022 CHOL-HDL RATIO NORM SEE BELOW Normal [facility] Comment on above: Result Comment: 3.3 - 4.4 LOW RISK 4.4 - 7.1 AVERAGE RISK 7.1 - 11.0 MODERATE RISK >11.0 HIGH RISK Performed By: #### L IPID, CMP #### [facility] [address] [place] [address] Dr. Emelyn Tilley Cholesterol [Mass/Vol] 173 mg/dL Normal <=200 [facility] Comment on above: Performed By: #### L IPID, CMP #### [facility] [address] [place] [address] Dr. Emelyn Tilley Cholesterol in HDL [Mass/Vol] 33 mg/dL Critically low 40-60 [facility] Comment on above: Performed By: #### L IPID, CMP #### [facility] [address] [place] [address] Dr. Emelyn Tilley Cholesterol in LDL [Mass/Vol] 104.4 mg/dL Normal [facility] Comment on above: Performed By: #### L IPID, CMP #### [facility] [address] [place] [address] Dr. Emelyn Tilley Cholesterol.total/ Cholesterol in HDL [Mass ratio] 5.2 {ratio} Normal [facility] Comment on above: Performed By: #### L IPID, CMP #### [facility] [address] [place] [address] Dr. Emelyn Tilley HDL NORMAL > or = 60 mg/dl - LO W CARDIOVASCULAR RISK <40 mg/dl - HIGH CARDIOVASCULAR RISK Normal [facility] Comment on above: Performed By: #### L IPID, CMP #### [facility] [address] [place] [address] Dr. Emelyn Tilley LDL CALC NORMAL SEE BELOW Normal [facility] Comment on above: Result Comment: <100 mg/dl OPTIMAL 100 - 129 mg/dl NEAR OR ABOVE OPTIMAL 130 - 159 mg/dl BORDERLINE HIGH 160 - 189 mg/dl HIGH >190 mg/dl VERY HIGH Performed By: #### L IPID, CMP #### [facility] [address] [place] [address] Dr. Emelyn Tilley Triglyceride [Mass/Vol] 178 mg/dL Critically high <=150 [facility] Comment on above: Performed By: #### L IPID, CMP #### [facility] [address] [place] [address] Dr. Emelyn Tilley VLDL CALC 35.6 mg/dL Normal [facility] Comment on above: Performed By: #### L IPID, CMP #### [facility] [address] [place] [address] Dr. Emelyn Tilley PROF 14(COMP METB)on 022 Albumin [Mass/Vol] 4.0 g/dL Normal 3.4-5.0 [facility] Comment on above: Performed By: #### L IPID, CMP #### [facility] [address] [place] [address] Dr. Emelyn Tilley Albumin/Globulin [Mass ratio] 1.2 {ratio} Normal [facility] Comment on above: Performed By: #### L IPID, CMP #### [facility] [address] [address] [address] Emelyn Tilley ALP [Catalytic activity/Vol] 91 U/L Normal 46-116 [facility] Comment on above: Performed By: #### L IPID, CMP #### [facility] [address] [address] [address] Emelyn Tilley ALT [Catalytic activity/Vol] 34 U/L Normal 16-63 [facility] Comment on above: Performed By: #### L IPID, CMP #### [facility] [address] [address] [address] Emelyn Tilley Anion gap [Moles/Vol] 8.8 mmol/L Normal [facility] Comment on above: Performed By: #### L IPID, CMP #### [facility] [address] [place] [address] Dr. Emelyn Tilley AST [Catalytic activity/Vol] 13 U/L Critically low 15-37 [facility] Comment on above: Performed By: #### L IPID, CMP #### [facility] [address] [address] [address] Emelyn Tilley Bilirubin [Mass/Vol] 0.5 mg/dL Normal 0.2-1.0 [facility] Comment on above: Performed By: #### L IPID, CMP #### [facility] [address] [address] [address] Emelyn Tilley Calcium [Mass/Vol] 9.1 mg/dL Normal 8.5-10.1 [facility] Comment on above: Performed By: #### L IPID, CMP #### [facility] [address] [address] [address] Emelyn Tilley Chloride [Moles/Vol] 106 mmol/L Normal 98-107 [facility] Comment on above: Performed By: #### L IPID, CMP #### [facility] [address] [address] [address] Emelyn Tilley CO2 [Moles/Vol] 28.2 mmol/L Normal 21.0-32.0 [facility] Comment on above: Performed By: #### L IPID, CMP #### [facility] [address] [address] [address] Emelyn Tilley Creatinine [Mass/Vol] 0.92 mg/dL Normal 0.70-1.30 [facility] Comment on above: Performed By: #### L IPID, CMP #### [facility] [address] [address] [address] Emelyn Tilley EGFR-AF BENINESE >60 Normal >=60 [facility] Comment on above: Performed By: #### L IPID, CMP #### [facility] [address] [address] [address] Emelyn Tilley EGFR-NON AF BENINESE >60 Normal >=60 [facility] Comment on above: Performed By: #### L IPID, CMP #### [facility] [address] [address] [address] Emelyn Tilley Globulin (S) [Mass/Vol] 3.3 g/dL Normal [facility] Comment on above: Performed By: #### L IPID, CMP #### [facility] [address] [address] [address] Emelyn Tilley Glucose [Mass/Vol] 110 mg/dL Critically high 74-106 [facility] Comment on above: Performed By: #### L IPID, CMP #### [facility] [address] [address] [address] Emelyn Tilley Potassium [Moles/Vol] 4.0 mmol/L Normal 3.5-5.1 [facility] Comment on above: Performed By: #### L IPID, CMP #### [facility] [address] [address] [address] Emelyn Tilley Protein [Mass/Vol] 7.3 g/dL Normal 6.4-8.2 [facility] Comment on above: Performed By: #### L IPID, CMP #### [facility] [address] [address] [address] Emelyn Tilley Sodium [Moles/Vol] 139 mmol/L Normal 136-145 [facility] Comment on above: Performed By: #### L IPID, CMP #### [facility] [address] [place], [place] [address] Dr. Emelyn Tilley Urea nitrogen [Mass/Vol] 17.0 mg/dL Normal 7.0-18.0 [facility] Comment on above: Performed By: #### L IPID, CMP #### [facility] [address] [place], [place] [address] Dr. Emelyn Tilley Urea nitrogen/Creatinin e [Mass ratio] 18.5 mg/mg Normal [facility] Comment on above: Performed By: #### L IPID, CMP #### [facility] [address] [place], [place] [address] Dr. Emelyn Tilley Vital Signs Date Time Vital Sign Value Performing Clinician Pao nash 09-19-2024 13:59-0500 Blood Pressure Location Samuel NILL [facility] [place] 09-19-2024 13:59-0500 Diastolic blood pressure 86 mm[Hg] Samuel NILL [facility] 09-19-2024 13:59-0500 Heart rate 72 /min Samuel NILL [facility] 09-19-2024 13:59-0500 Respiratory rate 16 /min Samuel NILL [facility] [place] 09-19-2024 13:59-0500 Systolic blood pressure 138 mm[Hg] Samuel NILL [facility] [place] 09-13-2023 08:04-0500 Blood Pressure Location Samuel NILL [facility] [place] 09-13-2023 08:04-0500 Diastolic blood pressure 93 mm[Hg] Samuel NILL [facility] [place] 09-13-2023 08:04-0500 Heart rate 73 /min Samuel NILL [facility] 09-13-2023 08:04-0500 Respiratory rate 16 /min Samuel NILL [facility] 09-13-2023 08:04-0500 Systolic blood pressure 142 mm[Hg] Samuel NILL [facility] Encounters Encounter Date Encounter Type Care Provider Facility Start: 09-19-2024 End: 09-19-2024 [facility] Start: 09-19-2024 End: 09-19-2024 Patient encounter procedure Samuel R NILL [facility] Start: 09-10-2024 ambulatory Samuel NILL Facility:[facility] Start: 10-18-2023 End: 10-18-2023 ambulatory [facility] Start: 10-18-2023 End: 10-18-2023 Patient encounter procedure Samuel R NILL [facility] Start: 09-28-2023 End: 09-28-2023 [facility]ulatory [facility] Start: 09-13-2023 End: 09-13-2023 Patient encounter procedure Samuel R NILL [facility] Start: 04-27-2022 Encounter for genera l adult medical examination without abnormal findings DR REKHA BARTH [facility] Start: 04-24-2022 End: 04-25-[address] REKHA BARTH Facility:[facility] Start: 04-24-2022 End: 04-25-2022 Encounter for general adult medical examination without abnormal findings DR REKHA BARTH Facility:[facility] Procedures Date Procedure Procedure Detail Performing Clinician Start: 09-28-2023 Esophagogastroduodenoscopy Samuel NILL Start: 09-28-2023 Colonoscopy Samuel NICOLAS None (qualifier value) Lorenzo DE SANTIAGO Immunizations Immunization Date Immunization Notes Care Provider Dona gomez NEGATED: Highlighted row has not occurred!09-13-2023 influenza virus vaccine, unspecified formulation Samuel DE SANTIAGO [facility] Payers Date Payer Category Payer Unknown [id number] 1985 Unknown [id number] 2.16.84 [id number] 1985 Unknown [id number] 2.16.8 [id number] 1985 Unknown [id number] 2.16.8 [id number] 1985 Unknown [id number] 2.16.8 [id number] 1985 Unknown [id number] 2.16.8 [id number] Social History Date Type Detail Facility Start: 09-13-2023 End: 09-19-2024 Tobacco smoking status Never smoked tobacco (finding) [facility] Tobacco smoking status Never [facility] Sex Assigned At Male [facility] Functional Status Date Assessment Result Facility 09-19-2024 Functional Status N/A [facility] [place] 09-13-2023 Functional Status N/A [facility] Clinical Note 09-19-2024 Note Date & Type Note Facility 09-19-2024 Note General Surgery Offi ce/Clinic Note Chief Complaint consultation for multiple nevi HPI Staff 39 year old male presents on consultation from Dr. Barth for multiple skin lesions. Reports several skin lesions scattered through out body. Verbalized all have been present greater than one year. None of these lesions changed since noted. None are sore, tender or itchy. History of Present Illness 39 yo male referred for skin lesions left shoulder and right forearm, also subcutaneous nodule right lateral lower chest wall. lesions present for over 1 year, denies change in lesions, no pain or bleeding; no personal h/o skin cancer, nodule on chest wall not painful, no change in size. no h/o other similar lesions in past; no tobacco use; no asa or NSAID use. Review of Systems PHQ Score Initial Depression [...] weakness. Skin: no changing moles, no rash, yes skin lumps. Neurologic: no seizures, no epilepsy, [...] noncontributory. Physical Exam Vitals & Measurements HR: 72(Peripheral) RR: 16 BP: 138/86 HT: 72 in HT: 182.9 cm WT: 121.3 kg WT: 267.42 lb BMI: 36.26 skin: 4 mm raised round, nonpigmented nodule right forearm and left shoulder, no ulceration or scab; nontender; right lower chest wall with 2 cm subcutaneous nodule, soft mobile, nontender, no overlying skin changes. Assessment/Plan 1. Lipoma of lateral chest wall (D17.1: Benign lipomatous neoplasm of skin and subcutaneous tissue of trunk) small, asymptomatic, not changing; can observe for now; if becomes sore or enlarges, f/u for possible excision. 2. Granuloma of skin (L92.9: Granulomatous disorder of the skin and subcutaneous tissue, unspecified) no change or symptoms; possible dermatofibroma; observe for now; if enlarge or change, call for reevaluation. Follow-up No qualifying data available Problem List/Past Medical History Ongoing BMI 36.0-36.9,adult Chronic GERD Granuloma of skin Hiatal hernia HTN (hypertension) Lipoma of lateral chest wall Mood disorder Morbid obesity PHOEBE (obstructive sleep apnea) Historical Abdominal bloating Change in bowel habits Heartburn Rectal bleeding Procedure/Surgical History Colonoscopy (09/28/2023), EGD - esophagogastroduodenoscopy (09/28/2023). Medications citalopram 20 mg Tab, 20 mg= 1 tab(s), Oral, Daily irbesartan 150 mg Tab, 150 mg= 1 tab(s), Oral, Daily Allergies No Known Allergies No Known Medication Allergies Social History Alcohol - Denies Alcohol Use, 09/13/2023 Never., 09/16/2024 Substance Abuse - Denies Substance Abuse, 09/13/2023 Never., 09/16/2024 Tobacco Never (less than 100 in lifetime) Tobacco Use:. Never Smokeless Tobacco Use:., 09/19/2024 Family History Family history is negative Immunizations Vaccine Date Status Comments influenza virus vaccine, inactivated - Not Given Patient Refuses [facility] Comment on above: Result Comment: Elec tronically Signed By: JONNATHAN HELTON, Samuel Ortega\Date and Time Signed: 09/19/24 18:28 EST Evaluation + Plan note Note Date & Type Note Facility Evaluation + Plan note No data available for this section [facility] Discharge instructions Note Date & Type Note Facility Hospital Discharge instructions No data available for this section [facility] Progress note Note Date & Type Note Facility Progress note No data available for this section [facility] Summary Purpose Family History No Family History [...] content) DATE CREATED AUTHOR 04/27/2022 [facility] curtis DATE CREATED AUTHOR AUTHOR'S ORGANIZ ATION 09/20/2024 Clay Jonel [facility] Patient Care team informatio n (unrecognized section and content) Personnel Name: Rekha Barth MD Address: Address: [address] [place] [address] Personnel Name: Rekha Barth MD Address: Address: [address] [place] [address] Personnel Name: Rekha Barth MD Address: Address: [address] [place] [address] FOR RECORDS PERTAINING TO PATIENTS WHO ARE [...] BE BASED ON THE PRIMARY CLINICAL RECORDS. [facility]. provides no warranty or guarantee of the accuracy or completeness of information in this document.
== END 2025-04-23 11:16 | disposition home or self-care (01) ==
LOC: RAD 11:18
PROVIDERS: PCP Family Medicine; Visit Provider Family Medicine
DX: R05.9 Cough, unspecified (principal)
CPT/HCPCS: 71046